=== PATIENT | female | born 1995 | race African-American/Black ===

== ENCOUNTER 2024-11-10 | Day surgery (SDC) | payer OTHER, SELFPAY ==
[2024-10-30 13:31] VITALS: BMI 26.7
--- OUTSIDE RECORDS SUMMARY | 2024-11-10 00:02 | XMS_ITS | Clinical Summary ---
Author Organization [facility] Address [address] [place] [address] Care Team Providers Care Movie Shot Camera Operator Name Role Phone Kristen Campos PA-C Primary Care Provider [phone] Allergies No known active allergies Medications Ferrous Sulfate (IRON) 28 MG Tab Act mathew ondansetron (ZOFRAN-ODT) 8 MG disintegrating tablet Take 1 tablet (8 mg total) by mouth every 8 (eight) hours as needed for Nausea. 20 tablet Active Active Problems No known active problems Family History Medical History Relation Comments No Known Problems Father Diabetes Mother Borderline Relation Status Comments Father Alive Mother Alive Social History Tobacco Use Types Packs/Day Years Used Date Smoking Tobacco: Never Passive Smoke Exposure: Never Smokeless Tobacco: Never Tobacco Cessation:Counseling Given: Not Answered Alcohol Use Standard Drinks/Week Comments No 0 (1 standard drink = 0.6 oz pur e alcohol) Comments No Sex and Gender Information Value Date Recorded Sex Assigned at Female 05/25/2024 5:37 PM HEALTH POLICY ANALYST Legal Sex Female 4:08 PM CDT Gender Identity Not on file Sexual Orientation Not on file Last Filed Vital Signs Vital Sign Reading Time Taken Comments Blood Pressure 131/73 06/05/2024 10:34 PM HEALTH POLICY ANALYST Pulse 58 06/05/2024 10:34 PM HEALTH POLICY ANALYST Temperature 36.1 C (97 F) 06/05/2024 10:34 PM HEALTH POLICY ANALYST Respiratory Rate 18 06/05/2024 10:34 PM HEALTH POLICY ANALYST Oxygen Saturation 100% 06/05/2024 10:34 PM HEALTH POLICY ANALYST Inhaled Oxygen Concentration - - Weight 70 kg (154 lb 5.2 oz) 06/05/2024 8:10 PM HEALTH POLICY ANALYST Height 167.6 cm (5' 6) 06/05/2024 8:10 PM HEALTH POLICY ANALYST Body Mass Index 24.91 06/05/2024 8:10 PM HEALTH POLICY ANALYST Plan of Treatment Health Maintenance Due Date Last Done Comments Cervical Cancer Screening Pap Smear (Age 30 to 64) Every 3 Years 1994 Annual Physical 1997 Hepatitis C 2012 DTaP, Tdap and Td Vaccines (7 - Td or Tdap) 11/28/2018 11/28/2008, 12/11/1999, 09/08/1995, Additional history exists COVID-19 Vaccine ( season) 2023 02/14/2021, 11/15/2020 Cervical Cancer Screening Pap with HPV Testing (Age 30 to 64) Every 5 Years 2024 Cervical Cancer Screening with HPV 2024 Hepatitis B Vaccines Completed 1994, 1994, 1994, Additional history exists Meningococcal Vaccine Aged Out 06/19/2014 , 11/28/2008, 11/28/2008 No longer eligible based on patient's age to complete this topic HPV Vaccines Aged Out No longer eligi ble based on patient's age to complete this topic Meningococcal B Vaccine Aged Out No l onger eligible based on patient's age to complete this topic Pneumococcal Vaccine: Pediatrics (0 to 5 Years) and At-Risk Patients (6 to 49 Years) Aged Out No longer eligible based on patient's age to complete this topic RSV Immunizations Under 20 Months Aged Out No longer eligible based on patient's age to complete this topic Insurance [facility] Care Teams Movie Shot Camera Operator Relationship Specialty Start Date End Date Kristen Campos PA-C [facility] [place] [address] PCP - General NURSE PRACTITIONER 10/11/23
--- OUTSIDE RECORDS SUMMARY | 2024-11-10 00:02 | XMS_ITS | Clinical Summary ---
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 Gender Identity Not on file Sexual Orientation Not on file Plan of Treatment Health Maintenance Due Date Last Done Comments Hepatitis C Virus (HCV) Screening 1994 Pap Smear 2015 Influenza Immunization (#1) 2023 02/06/2021, 1 SARS-COV-2 Immunization ( season) 2023 02/14/2021, 11/15/2020 Respiratory Syncytial Virus (RSV) Immunization (Adult) (1 - 1-dose 75+ series) 2069 Hepatitis B Immunization Completed 995, 1994, 1994 DTaP/Tdap/Td Immunization Discontinued 2008, 12/11/1999, 09/08/1995, Additional history exists TdaP Immunization Completed 11/28/2008 Meningococcal Immunization (ACWY) Aged Out 06/19/2014, 11/28/2008 No longer eligibl e based on patient's age to complete this topic Pneumococcal Immunization Combined Aged Out No longer eligible based on patient's age to complete this topic Rotavirus Immunization Aged Out No lo nger eligible based on patient's age to complete this topic
--- OUTSIDE RECORDS SUMMARY | 2024-11-10 00:02 | XMS_ITS | Clinical Summary ---
Author Organization [facility] Address [address] [place] [address] Care Team Providers Care Feather Separator Name Role Phone Unavailable Primary Care Provider Unavailabl e Source Comments [facility],non-owned Affiliates and Associated Physician Practices is amultiple site organization consisting of ambulatory clinics and hospital sitesin [place], [place], [place] and [place]. This disclosure is being madepursuant to the Care Everywhere program and may not contain all information available regarding this patient. 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 Gender Identity Not on file Sexual Orientation Not on file Plan of Treatment Health Maintenance Due Date Last Done Comments HIV SCREENING 2009 HEPATITIS C SCREENING 06/02/2012 DTAP/TDAP/TD VACCINES (1 - Tdap) 2013 HEPATITIS B VACCINE (1 of 3 - 19+ 3-dose series) 2013 HPV VACCINE (1 - 3-dose SCDM series) 2021 COVID-19 VACCINE ( - 2023-2 5 season) 2023 DEPRESSION SCREENING 04/26/2024 INFLUENZA VACCINE (#1) 2024 ZOSTER VACCINE (1 of 2) 2044 HIB VACCINE Aged Out No longer eligi ble based on patient's age to complete this topic MENINGOCOCCAL (Group B) VACC INE SHARED DECISION-MAKING Aged Out No longer eligibl e based on patient's age to complete this topic MENINGOCOCCAL GROUPS A/C/Y/W VACCINE Aged Out No longer eligible b ased on patient's age to complete this topic PNEUMOCOCCAL VACCINE Aged Out No long er eligible based on patient's age to complete this topic
--- OUTSIDE RECORDS SUMMARY | 2024-11-10 00:02 | XMS_ITS | Data Portability ---
Author Organization [facility] Precious Teran Address [address] [facility] [place] [address] Care Team Providers Care Emergency Preparedness Coordinator Name Role Phone TANYATHEA Primary Care Provider Assessment No assessment recorded. Plan of Treatment Reminders Order Date Submit Date Provider Last Modified By Organization Details Last Modified Time Details Appointments None recorded. Lab YASIR (antinuclea r antibodies) screen, serum 2024 025 [facility], [address] [place], [place] [address] [address], [address], [place], [address], 12:11:40 ESR (erythrocyt e sedimentati on rate), blood 2024 025 [facility], [address] [place], [place] [address]Marco Vasco [address], [address], [place], [address], 12:11:44 C reactive protein, QN, serum or plasma 2024 025 [facility], [address], [address], [place], [address], 5 12:11:45 iron + total iron-bindin g capacity (TIBC), serum 2024 025 [facility], [address] [place], [place] [address]Marco Vasco [address], [address], [place], [address], 5 12:11:41 ferritin, serum or plasma 2024 025 [facility], [address], [address], [place], [address], 5 12:11:42 CBC w/ auto diff 2024 025 [facility], [address], [address], [place], [address], 5 12:11:43 iron + total iron-bindin g capacity (TIBC), serum 2024 025 [facility], [address], [address], [place], [address], 5 12:14:51 ferritin, serum or plasma 2024 025 [facility], [address], [address], [place], [address], 5 12:14:52 CBC w/ auto diff 2024 025 [facility], [address], [address], [place], [address], 5 12:14:53 urinalysis, dipstick 2023 024 [email or web address] In-Office Order, Internal Use Only DO Not Attach Compendium DO Not Attach Compendium, Do Not Delete/merge, [id number] 4 17:23:09 culture, urine 2023 024 [facility], [address], [address], [place], [address], 4 00:29:29 lipid panel, serum 2023 024 [facility], [address], [address], [place], [address], 4 00:29:27 CBC w/ auto diff 2023 024 [facility], [address], [address], [place], [address], 4 00:29:29 vitamin D, 25-hydroxy, total, serum 2023 024 [facility], [address], [address], [place], [address], 4 00:29:30 TSH + free T4, serum 2023 024 [facility], [address], [address], [place], [address], 4 00:29:27 CMP, serum or plasma 2023 024 [facility], [address], [address], [place], [address], 4 00:29:28 iron + total iron-bindin g capacity (TIBC), serum 2023 024 [facility], [address], [address], [place], [address], 4 00:29:28 urinalysis, dipstick 2023 024 [email or web address] In-Office Order, Internal Use Only DO Not Attach Compendium DO Not Attach Compendium, Do Not Delete/merge, [id number] 4 12:35:01 Referral gastroenter ologist referral 2024 025 [email or web address] Skinny Ye MD, [address] [facility] [address], [place], [address], 5 08:51:53 Procedures None recorded. Surgeries None recorded. Imaging None recorded. Medication Orders sertraline 50 mg tablet 2024 025 [facility], [address], [place], [id number], 5 11:01:22 omeprazole 20 mg capsule,del ayed release 2024 025 [facility] #41975, [address], [place], [id number], 5 11:03:20 sertraline 50 mg tablet 2024 025 [facility] #37019, [address], [place], [id number], 5 11:41:08 sertraline 50 mg tablet [email or web address] [facility]23536, [address], [place], [id number], 4 20:14:44 Patient TargetsNo targets recorded. Patient Instructions Encounter Date Encounter Id Patient Instructions Last Modified By Organization Details Last Modified Time 05/21/2023 [id number] A healthy lifestyle: care instructions [email or web address] Not available 05/21/2023 12:35:00 We are treating you for an urinary tract infection. 1. Hydrate and drink plenty of water 2. Take all of your antibiotics even if you are feeling better. 3. If you get a fever, back pain or start feeling really sick, go to the ER as you might have a kidney infection. Do NOT douche as it disturbs the natural balance of bacteria in the vagina and can cause infection. Avoid scented soaps or lotions. Use a basic unscented soap for only the outer skin around your vagina. Wear cotton underwear, avoid thongs, avoid spandex, leggings and wear panty liners daily. You can try probiotics. Use a condom with EVERY sexual encounter to minimize your risk for sexually transmitted infection and unplanned . 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 Referring Physician: Thea Campos, Conductor/Engineer, Encounter Date: 10/02/2024 Results Created Date Observation Date Name Description Value Unit Range Abnormal Flag Note LastModifiedBy Organization Detail LastModifiedTime 05/21/1905/21/2023 urina lysis , dipst ick Leukocytes Small Not Available In-Offi ce Order Internal Use Only DO Not Attach Compendium DO Not Attach Compendium, Do Not Delete/merge, [id number] 05/21/2023 11:06:21 05/21/19 24 05/21/2023 urina lysis , dipst ick Nitrite negati ve Not Available In-Office Order Internal Use Only DO Not Attach Compendium DO Not Attach Compendium, Do Not Delete/merge, [id number] 05/21/2023 11:06:21 05/21/1905/21/2023 urina lysis , dipst ick Urobilinogen 1 Not Available In-Of fice Order Internal Use Only DO Not Attach Compendium DO Not Attach Compendium, Do Not Delete/merge, [id number] 05/21/2023 11:06:21 05/21/19 24 05/21/2023 urina lysis , dipst ick Protein 100 Not Available In-Office Order Internal Use Only DO Not Attach Compendium DO Not Attach Compendium, Do Not Delete/merge, [id number] 05/21/2023 11:06:21 05/21/19 24 05/21/2023 urina lysis , dipst ick pH 6.5 Not Available In-Office Order Internal Use Only DO Not Attach Compendium DO Not Attach Compendium, Do Not Delete/merge, [id number] 05/21/2023 11:06:21 05/21/1905/21/2023 urina lysis , dipst ick Blood Large Not Available In-Office Order Internal Use Only DO Not Attach Compendium DO Not Attach Compendium, Do Not Delete/merge, [facility] 05/21/2023 11:06:21 05/21/19 24 05/21/2023 urina lysis , dipst ick Specific [place] 1.030 Not Available In-Off ice Order Internal Use Only DO Not Attach Compendium DO Not Attach Compendium, Do Not Delete/merge, [id number] 05/21/2023 11:06:21 05/21/19 24 05/21/2023 urina lysis , dipst ick Ketone Negati ve Not Available In-Office Order Internal Use Only DO Not Attach Compendium DO Not Attach Compendium, Do Not Delete/merge, [facility] 05/21/2023 11:06:21 05/21/19 24 05/21/2023 urina lysis , dipst ick Bilirubin Small Not Available In-Offic e Order Internal Use Only DO Not Attach Compendium DO Not Attach Compendium, Do Not Delete/merge, [facility] 05/21/2023 11:06:21 05/21/1905/21/2023 urina lysis , dipst ick Glucose Negati ve Not Available In-Office Order Internal Use Only DO Not Attach Compendium DO Not Attach Compendium, Do Not Delete/merge, [facility] 05/21/2023 11:06:21 05/21/1905/21/2023 urina lysis , dipst ick Appearance Slight ly Cloudy Not Available In-Office Order Internal Use Only DO Not Attach Compendium DO Not Attach Compendium, Do Not Delete/merge, [id number] 05/21/2023 11:06:21 05/21/19 24 05/21/2023 urina lysis , dipst ick Color Yellow Not Available In-Office Order Internal Use Only DO Not Attach Compendium DO Not Attach Compendium, Do Not Delete/merge, [facility] 05/21/2023 11:06:21 06/21/19 24 06/23/2023 SPECI MEN STATU S REPOR T specimen status report TNP Test not perfo rmed. Test cance lled by [facility] after order was submi tted to [facility]. TEST: 26802 6 TSH+F ree T4 92480 9 CBC With Diffe renti al/Pl [place]ele t 89502 0 Comp. Metab olic Panel (14) 70506 6 Lipid Panel 39296 1 Iron and TIBC 70292 0 Vitam in D, 25-Hy droxy Not Available [facility] ([facility]) [address] [place], [address], 06/25/2023 00:29:26 06/21/19 24 06/23/2023 TSH+F REE T4 TSH - uIU/m L Test not perfo rmed. Test cance lled by [facility] gu[facility]erm[facility] after order was submi tted to [facility]. Not Available [facility] ([facility]) [address] [place], [address], 06/25/2023 00:29:27 06/21/19 24 06/23/2023 TSH+F REE T4 T4,free(dire ct) - Test not perfo rmed Not Available [facility] ([facility]) [address] [place], [address], 06/25/2023 00:29:27 06/21/19 24 06/23/2023 LIPID PANEL cholesterol, total - mg/dL Test not perfo rmed. Test cance lled by [facility] provi guillermina after order was submi tted to [facility]. Not Available [facility] ([facility]) [address] [place], [address], 06/25/2023 00:29:27 06/21/19 24 06/23/2023 LIPID PANEL triglyceride s - Test not perfo rmed Not Available [facility] ([facility]) [address] [place], [address], 06/25/2023 00:29:27 06/21/19 24 06/23/2023 LIPID PANEL HDL cholesterol - Test not perfo rmed Not Available [facility] ([facility]) [address] [facility] [place], [address], 06/25/2023 00:29:27 06/21/19 24 06/23/2023 LIPID PANEL VLDL cholesterol vivienne TNP mg/dL Unabl e to calcu late resul t since non-n umeri c resul t obtai rick for compo nent test. Not Available [facility] ([facility]) [address] [facility], [place], [address], 06/25/2023 00:29:27 06/21/19 24 06/23/2023 COMP. METAB OLIC PANEL (14) glucose - mg/dL Test not perfo rmed. Test cance lled by [facility] after order was submi tted to [facility]. Not Available [facility] ([facility]) [address] [facility], [place], [address], 06/25/2023 00:29:28 06/21/19 24 06/23/2023 COMP. METAB OLIC PANEL (14) BUN - Test not perfo rmed Not Available [facility] ([facility]) [address] [facility] [place], [address], 06/25/2023 00:29:28 06/21/19 24 06/23/2023 COMP. METAB OLIC PANEL (14) creatinine - Test not perfo rmed Not Available [facility] ([facility]) [address] [facility] [place], [address], 06/25/2023 00:29:28 06/21/19 24 06/23/2023 COMP. METAB OLIC PANEL (14) sodium - Test not perfo rmed Not Available [facility] ([facility]) [address] [facility] [place], [address], 06/25/2023 00:29:28 06/21/19 24 06/23/2023 COMP. METAB OLIC PANEL (14) potassium - Test not perfo rmed Not Available [facility] ([facility]) [address] [facility], [place], [address], 06/25/2023 00:29:28 06/21/19 24 06/23/2023 COMP. METAB OLIC PANEL (14) chloride - Test not perfo rmed Not Available [facility] ([facility]) [address] [facility], [place], [address], 06/25/2023 00:29:28 06/21/19 24 06/23/2023 COMP. METAB OLIC PANEL (14) carbon dioxide, total - Test not perfo rmed Not Available [facility] ([facility]) [address] [facility], [place], [address], 06/25/2023 00:29:28 06/21/19 24 06/23/2023 COMP. METAB OLIC PANEL (14) calcium - Test not perfo rmed Not Available [facility] ([facility]) [address] [facility] [place], [address], 06/25/2023 00:29:28 06/21/19 24 06/23/2023 COMP. METAB OLIC PANEL (14) protein, total - Test not perfo rmed Not Available [facility] ([facility]) [address] [facility], [place], [address], 06/25/2023 00:29:28 06/21/19 24 06/23/2023 COMP. METAB OLIC PANEL (14) albumin - Test not perfo rmed Not Available [facility] ([facility]) [address] [facility] [place], [address], 06/25/2023 00:29:28 06/21/19 24 06/23/2023 COMP. METAB OLIC PANEL (14) bilirubin, total - Test not perfo rmed Not Available [facility] ([facility]) [address] [facility], [place], [address], 06/25/2023 00:29:28 06/21/19 24 06/23/2023 COMP. METAB OLIC PANEL (14) alkaline phosphatase - Test not perfo rmed Not Available [facility] ([facility]) [address] [facility], [place], [address], 06/25/2023 00:29:28 06/21/19 24 06/23/2023 COMP. METAB OLIC PANEL (14) AST (SGOT) - Test not perfo rmed Not Available [facility] ([facility]) [address] [facility], [place], [address], 06/25/2023 00:29:28 06/21/19 24 06/23/2023 COMP. METAB OLIC PANEL (14) ALT (SGPT) - Test not perfo rmed Not Available [facility] ([facility]) [address] [facility], [place], [address], 06/25/2023 00:29:28 06/21/19 24 06/23/2023 IRON AND TIBC UIBC - ug/dL Test not perfo rmed. Test cance lled by [facility] after order was submi tted to [facility]. Not Available [facility] ([facility]) [address] [facility], [place], [address], 06/25/2023 00:29:28 06/21/19 24 06/23/2023 IRON AND TIBC iron - Test not perfo rmed Not Available [facility] ([facility]) [address] [place], [address], 06/25/2023 00:29:28 06/21/19 24 06/23/2023 CBC WITH DIFFE RENTI AL/PL ATELE T WBC - x10e3 /uL Test not perfo rmed. Test cance lled by [facility] after order was submi tted to [facility]. Not Available [facility] ([facility]) [address] [facility], [place], [address], 06/25/2023 00:29:29 06/21/19 24 06/23/2023 CBC WITH DIFFE RENTI AL/PL ATELE T RBC - Test not perfo rmed Not Available [facility] ([facility]) [address] [facility], [place], [address], 06/25/2023 00:29:29 06/21/19 24 06/23/2023 CBC WITH DIFFE RENTI AL/PL ATELE T hemoglobin - Test not perfo rmed Not Available [facility] ([facility]) [address] [facility], [place], [address], 06/25/2023 00:29:29 06/21/19 24 06/23/2023 CBC WITH DIFFE RENTI AL/PL ATELE T hematocrit - Test not perfo rmed Not Available [facility] ([facility]) [address] [facility], [place], [address], 06/25/2023 00:29:29 06/21/19 24 06/23/2023 CBC WITH DIFFE RENTI AL/PL ATELE T platelets - Test not perfo rmed Not Available [facility] ([facility]) [address] [place], [address], 06/25/2023 00:29:29 06/21/19 24 06/23/2023 CBC WITH DIFFE RENTI AL/PL ATELE T neutrophils - Test not perfo rmed Not Available [facility] ([facility]) [address] [place], [address], 06/25/2023 00:29:29 06/21/19 24 06/23/2023 CBC WITH DIFFE RENTI AL/PL ATELE T lymphs - Test not perfo rmed Not Available [facility] ([facility]) [address] [place], [address], 06/25/2023 00:29:29 06/21/19 24 06/23/2023 CBC WITH DIFFE RENTI AL/PL ATELE T monocytes - Test not perfo rmed Not Available [facility] ([facility]) [address] [facility], [place], [address], 06/25/2023 00:29:29 06/21/19 24 06/23/2023 CBC WITH DIFFE RENTI AL/PL ATELE T eos - Test not perfo rmed Not Available [facility] ([facility]) [address] [facility], [place], [address], 06/25/2023 00:29:29 06/21/19 24 06/23/2023 CBC WITH DIFFE RENTI AL/PL ATELE T lymphs (absolute) - Test not perfo rmed Not Available [facility] ([facility]) [address] [facility], [place], [address], 06/25/2023 00:29:29 06/21/19 24 06/23/2023 CBC WITH DIFFE RENTI AL/PL ATELE T eos (absolute) - Test not perfo rmed Not Available [facility] ([facility]) [address] [facility], [place], [address], 06/25/2023 00:29:29 06/21/19 24 06/23/2023 CBC WITH DIFFE RENTI AL/PL ATELE T baso (absolute) - Test not perfo rmed Not Available [facility] ([facility]) [address] [facility], [place], [address], 06/25/2023 00:29:29 06/21/19 24 06/25/2023 URINE CULTU RE, ROUTI NE urine culture, routine Final report Not Available [facility] ([facility]) [address] [place], [address], 06/25/2023 00:29:29 06/21/19 24 06/25/2023 URINE CULTU RE, ROUTI NE result 1 No growth Not Available [facility] ([facility]) [address] [facility], [place], [address], 06/25/2023 00:29:29 06/21/19 24 06/23/2023 VITAM IN D, 25-HY DROXY vitamin D, 25-hydroxy - NG/mL Test not perfo rmed. Test cance lled by [facility] after order was submi tted to [facility]. Vitam in D defic iency has been defin ed by the Insti tute of Medic ine and an Endoc rine Socie ty pract ice guide line as a level of serum 25-OH vitam in D less than 20 ng/mL (1,2) . The Endoc rine Socie ty went on to [facility] er defin e vitam in D insuf ficie ncy as a level betwe en 21 and 29 ng/mL (2). 1. IOM (Inst itute of Medic ine). 2009. Dieta ry refer ence intak es for calci um and D. Anthony king [place]: The [facility] . 2. Camilla neves MF, Corinna ovalles [place], Christina off-F errar i [employer], et al. Evalu ation , treat ment, and preve ntion of vitam in D defic iency : an Endoc rine Socie ty clini vivienne pract ice guide line. JCEM. 2010; 96(7) :1911 -30. Not Available [facility] ([facility]) [address] [facility], [place], [address], 06/25/2023 00:29:30 06/21/19 24 06/21/2023 urina lysis , dipst ick Leukocytes Large Not Available In-Offi ce Order Internal Use Only DO Not Attach Compendium DO Not Attach Compendium, Do Not Delete/merge, [id number] 06/21/2023 17:07:06 06/21/19 24 06/21/2023 urina lysis , dipst ick Nitrite negati ve Not Available In-Office Order Internal Use Only DO Not Attach Compendium DO Not Attach Compendium, Do Not Delete/merge, [facility] 06/21/2023 17:07:06 06/21/19 24 06/21/2023 urina lysis , dipst ick Urobilinogen 1 Not Available In-Of fice Order Internal Use Only DO Not Attach Compendium DO Not Attach Compendium, Do Not Delete/merge, [facility] 06/21/2023 17:07:06 06/21/19 24 06/21/2023 urina lysis , dipst ick Protein Negati ve Not Available In-Office Order Internal Use Only DO Not Attach Compendium DO Not Attach Compendium, Do Not Delete/merge, [id number] 06/21/2023 17:07:06 06/21/19 24 06/21/2023 urina lysis , dipst ick pH 7.0 Not Available In-Office Order Internal Use Only DO Not Attach Compendium DO Not Attach Compendium, Do Not Delete/merge, [facility] 06/21/2023 17:07:06 06/21/19 24 06/21/2023 urina lysis , dipst ick Blood Large Not Available In-Office Order Internal Use Only DO Not Attach Compendium DO Not Attach Compendium, Do Not Delete/merge, [facility] 06/21/2023 17:07:06 06/21/19 24 06/21/2023 urina lysis , dipst ick Specific [place] 1.020 Not Available In-Off ice Order Internal Use Only DO Not Attach Compendium DO Not Attach Compendium, Do Not Delete/merge, [facility] 06/21/2023 17:07:06 06/21/19 24 06/21/2023 urina lysis , dipst ick Ketone Negati ve Not Available In-Office Order Internal Use Only DO Not Attach Compendium DO Not Attach Compendium, Do Not Delete/merge, [facility] 06/21/2023 17:07:06 06/21/19 24 06/21/2023 urina lysis , dipst ick Bilirubin Negati ve Not Available In-Office Order Internal Use Only DO Not Attach Compendium DO Not Attach Compendium, Do Not Delete/merge, [facility] 06/21/2023 17:07:06 06/21/19 24 06/21/2023 urina lysis , dipst ick Glucose Negati ve Not Available In-Office Order Internal Use Only DO Not Attach Compendium DO Not Attach Compendium, Do Not Delete/merge, [id number] 06/21/2023 17:07:06 06/21/19 24 06/21/2023 urina lysis , dipst ick Appearance Cloudy Not Available In-Offi ce Order Internal Use Only DO Not Attach Compendium DO Not Attach Compendium, Do Not Delete/merge, [id number] 06/21/2023 17:07:06 06/21/19 24 06/21/2023 urina lysis , dipst ick Color Pale Yellow Not Available In-Office Order Internal Use Only DO Not Attach Compendium DO Not Attach Compendium, Do Not Delete/merge, [id number] 06/21/2023 17:07:06 03/03/20 24 03/07/2024 Chlam ydia trach omati s+Nei sseri a gonor rhoea e DNA [Pres ence] in Speci men by RONNIE with probe detec tion specimen site narrative CERVIX Not Available Not Available 11:25:08 03/03/20 24 03/07/2024 Chlam ydia trach omati s+Nei sseri a gonor rhoea e DNA [Pres ence] in Speci men by RONNIE with probe detec tion chlamydia trachomatis rrna [presence] in specimen by probe NEGATI VE text: negati ve PERFO RMED BY NUCLE IC ACID AMPLI FICAT ION Not Available Not Available 10/02/2024 11:25:08 03/03/20 24 03/07/2024 Chlam ydia trach omati s+Nei sseri a gonor rhoea e DNA [Pres ence] in Speci men by RONNIE with probe detec tion neisseria gonorrhoeae rrna [presence] in specimen by probe NEGATI VE text: negati ve PERFO RMED BY NUCLE IC ACID AMPLI FICAT ION Not Available Not Available 10/02/2024 11:25:08 03/03/20 24 03/07/2024 Bacte abby ident ified in Genit al speci men by Aerob e cultu re specimen source identified VAGINA L SPECIM EN Not Available Not Available 11:25:08 03/03/20 24 03/07/2024 Bacte abby ident ified in Genit al speci men by Aerob [employer] cultu re service comment NO SPECIA L REQUES T Not Available Not Available 11:25:08 03/03/20 24 03/07/2024 Bacte abby ident ified in Genit al speci men by Aer[employer] cultu re microscopic observation [identifier] in specimen by gram stain INDETE RMINAT E FOR BACTER IAL VAGINO SIS Not Available Not Available 11:25:08 03/03/20 24 03/07/2024 Bacte abby ident ified in Genit al speci men by Aerob e cultu re microscopic observation [identifier] in specimen by gram stain NO YEAST OR FUNGAL ELEMEN TS SEEN Not Available Not Available 11:25:08 03/03/20 24 03/07/2024 Bacte abby ident ified in Genit al speci men by Aerob e cultu re bacteria identified in specimen by culture HEAVY GROWTH OF GARDNE RELLA VAGINA LIS STANDA RDIZED SUSCEP TIBILI TIES HAVE NOT BEEN ESTABL ISHED FOR THIS ORGANI SM. abnormal Not Available Not Available 11:25:08 03/03/20 24 03/07/2024 Bacte abby ident ified in Genit al speci men by Aerob e cultu re bacteria identified in specimen by culture MODERA TE GROWTH OF NORMAL VINCE PRESEN T Not Available Not Available 11:25:08 03/03/20 24 03/07/2024 Bacte abby ident ified in Genit al speci men by Aerob e cultu re interpretati on and review of laboratory results Abnorm al Not Available Not Available 11:25:08 03/03/20 24 03/06/2024 Bacte abby ident ified in Urine by Cultu re specimen source identified URINE CLEAN CATCH Not Available Not Available 11:25:08 03/03/20 24 03/06/2024 Bacte abby ident ified in Urine by Cultu re service comment NO SPECIA L REQUES T Not Available Not Available 11:25:08 03/03/20 24 03/06/2024 Bacte abby ident ified in Urine by Cultu re bacteria identified in specimen by culture >100,0 00 COL/ML ENTERO COCCUS SPECIE S abnormal Not Available Not Available 11:25:08 03/03/20 24 03/06/2024 Bacte abby ident ified in Urine by Cultu re interpretati on and review of laboratory results Abnorm al Not Available Not Available 11:25:08 03/03/20 24 03/03/2024 Urina lysis macro (dips tick) panel - Urine collection method - specimen URINE CLEAN CATCH Not Available Not Available 11:25:08 03/03/20 24 03/03/2024 Urina lysis macro (dips tick) panel - Urine color of urine OTHER Not Available Not Available 12/2024 11:25:08 03/03/20 24 03/03/2024 Urina lysis macro (dips tick) panel - Urine clarity of urine CLOUDY Not Available Not Available 12/2024 11:25:08 03/03/20 24 03/03/2024 Urina lysis macro (dips tick) panel - Urine specific gravity of urine >1.030 low: 1.001h igh: 1.03 high Not Available Not Available 10/02/2024 11:25:08 03/03/20 24 03/03/2024 Urina lysis macro (dips tick) panel - Urine pH of urine 6 low: 5high: 9 Not Available Not Available 10/02/2024 11:25:08 03/03/20 24 03/03/2024 Urina lysis macro (dips tick) panel - Urine leukocytes [#/volume] in urine by test strip SMALL text: negati ve abnormal Not Available Not Available 10/02/2024 11:25:08 03/03/20 24 03/03/2024 Urina lysis macro (dips tick) panel - Urine nitrite [presence] in urine NEGATI VE text: negati ve Not Available Not Available 10/02/2024 11:25:08 03/03/20 24 03/03/2024 Urina lysis macro (dips tick) panel - Urine protein [mass/volume ] in urine by test strip 30 text: <30 mg/dL high Not Available Not Available 10/02/2024 11:25:08 03/03/20 24 03/03/2024 Urina lysis macro (dips tick) panel - Urine glucose [mass/volume ] in urine NEGATI VE text: negati ve mg/dL Not Available Not Available 10/02/2024 11:25:08 03/03/20 24 03/03/2024 Urina lysis macro (dips tick) panel - Urine ketones [mass/volume ] in urine by test strip 15 text: negati ve mg/dL abnormal Not Available Not Available 10/02/2024 11:25:08 03/03/20 24 03/03/2024 Urina lysis macro (dips tick) panel - Urine urobilinogen [units/volum e] in urine by test strip 2 text: negati ve mg/dL abnormal Not Available Not Available 10/02/2024 11:25:08 03/03/20 24 03/03/2024 Urina lysis macro (dips tick) panel - Urine bilirubin.to chandler [mass/volume ] in urine NEGATI VE text: negati ve mg/dL Not Available Not Available 10/02/2024 11:25:08 03/03/20 24 03/03/2024 Urina lysis macro (dips tick) panel - Urine erythrocytes [#/volume] in urine by automated test strip LARGE text: negati ve abnormal Not Available Not Available 10/02/2024 11:25:08 03/03/20 24 03/03/2024 Urina lysis macro (dips tick) panel - Urine interpretati on and review of laboratory results Abnorm al Not Available Not Available 11:25:08 05/25/19 25 05/25/2024 Influ marely virus A+B Ag [Pres ence] in Speci men specimen source identified PALMA BRODERICK AL SWAB SPECI MEN TYPE RADHA BLANCA GEAL SWAB 05/25 6:41 PM [facility] Not Available Not Available 2024 11:46:23 05/25/19 25 05/25/2024 Influ marely virus A+B Ag [Pres ence] in Speci men influenza virus A Ag [presence] in specimen NEGATI VE text: negati ve INFLU MARELY A NEGAT KASIA NEGAT KASIA 05/25 6:43 PM CUPROUS CHLORIDE OPERATOR [facility] Not Available Not Available 2024 11:46:23 05/25/19 25 05/25/2024 Influ marely virus A+B Ag [Pres ence] in Speci men haemophilus influenzae B Ag [presence] in specimen NEGATI VE text: negati ve INFLU MARELY B NEGAT KASIA NEGAT KASIA 05/25 6:43 PM [facility]LORIDE OPER[facility] Not Available Not Available 2024 11:46:23 05/25/19 25 05/25/2024 Strep tococ cus pyoge susan Ag [Pres ence] in Throa t specimen source identified RESULT S ENTERE D IN ERROR. ZA SPECI MEN TYPE RESUL TS ENTER ED IN ERROR . ZAL 05/25 6:47 PM CUPROUS CHLORIDE OPERATOR [facility] Not Available Not Available 2024 11:46:23 05/25/19 25 05/25/2024 Strep tococ cus pyoge susan Ag [Pres ence] in Throa t streptococcu s pyogenes Ag [presence] in throat RESULT S ENTERE D IN ERROR. ZA text: negati ve RAPID STREP TEST RESUL TS ENTER ED IN ERROR . NASRIN NEGAT KASIA 05/25 6:47 PM CUPROUS CHLORIDE OPERATOR [facility] Not Available Not Available 2024 11:46:23 05/30/19 25 05/30/2024 Basic metab olic 2000 panel - Serum or Plasm a glucose [mass/volume ] in serum or plasma 88 text: 70 - 99 mg/dL GLUCO SE 88 70 - 99 MG/DL 05/30 6:38 PM CUPROUS CHLORIDE OPERATOR [facility] Not Available Not Available 2024 11:46:25 05/30/19 25 05/30/2024 Basic metab olic 2000 panel - Serum or Plasm a urea nitrogen [mass/volume ] in serum or plasma 13 text: 7 - 18 mg/dL BUN 13 7 - 18 MG/DL 05/30 6:38 PM [facility] Not Available Not Available 2024 11:46:25 05/30/19 25 05/30/2024 Basic metab olic 1999 panel - Serum or Plasm a creatinine [mass/volume ] in serum or plasma 0.79 text: 0.55 - 1.02 mg/dL CREAT ININE S/P/B 0.79 0.55 - 1.02 MG/DL 05/30 6:38 PM [facility] Not Available Not Available 2024 11:46:25 05/30/19 25 05/30/2024 Basic metab olic 1999 panel - Serum or Plasm a sodium [moles/volum e] in serum or plasma 138 text: 136 - 145 mmol/L SODIU M S/P/B 138 136 - 145 MMOL/ L 05/30 6:38 PM [facility] Not Available Not Available 2024 11:46:25 05/30/19 25 05/30/2024 Basic metab olic 1999 panel - Serum or Plasm a potassium [moles/volum e] in serum or plasma 3.6 text: 3.5 - 5.1 mmol/L POTAS SIUM S/P/B 3.6 3.5 - 5.1 MMOL/ L 05/30 6:38 PM [facility] Not Available Not Available 2024 11:46:25 05/30/19 25 05/30/2024 Basic metab olic 1999 panel - Serum or Plasm a chloride [moles/volum e] in serum or plasma 106 text: 97 - 115 mmol/L CHLOR ROXY S/P/B 106 97 - 115 MMOL/ L 05/30 6:38 PM [facility] Not Available Not Available 2024 11:46:25 05/30/19 25 05/30/2024 Basic metab olic 1999 panel - Serum or Plasm a carbon dioxide, total [moles/volum e] in serum or plasma 25.6 text: 21 - 32 mmol/L CO2 25.6 21 - 32 MMOL/ L 05/30 6:38 PM [facility] Not Available Not Available 2024 11:46:25 05/30/19 25 05/30/2024 Basic metab olic 1999 panel - Serum or Plasm a calcium [mass/volume ] in serum or plasma 9.3 text: 8.5 - 10.1 mg/dL CALCI UM S/P/B 9.3 8.5 - 10.1 MG/DL 05/30 6:38 PM [facility] Not Available Not Available 2024 11:46:25 05/30/19 25 05/30/2024 Basic metab olic 1999 panel - Serum or Plasm a anion gap in serum or plasma 6.4 text: 2 - 10 mmol/L ANION GAP 6.4 2 - 10 MMOL/ L 05/30 6:38 PM [facility] Not Available Not Available 2024 11:46:25 05/30/19 25 05/30/2024 Basic metab olic 2000 panel - Serum or Plasm a urea nitrogen/cre atinine [mass ratio] in serum or plasma 16.5 low: 6high: 26 BUN CREAT ININE RATIO 16.5 6 - 26 05/30 6:38 PM [facility] Not Available Not Available 2024 11:46:25 05/30/19 25 05/30/2024 Basic metab olic 2000 panel - Serum or Plasm a glomerular filtration rate/1.73 sq M.predicted [volume rate/area] in serum, plasma or blood by creatinine-b ased formula (CKD-epi 2020) text: >90 mL/min /1.73 M2 GFR ESTIM ATE >90 >90 ML/[place] N/1.7 3 M2 05/30 6:38 PM CUPROUS CHLORIDE OPERATOR [facility] Not Available Not Available 2024 11:46:25 05/30/19 25 05/30/2024 Fibri n D-dim er FEU [Mass /volu me] in Plate let poor plasm a fibrin D-dimer feu [mass/volume ] in platelet poor plasma 269 NG{fe u}/mL low: 0NG{fe u}/mLh igh: 500NG{ feu}/m L D-DIM ER 269 0 - 500 ng{FE U}/mL 05/30 6:43 PM CUPROUS CHLORIDE OPERATOR [facility] Not Available Not Available 2024 11:46:25 06/01/19 25 06/02/2024 IRON AND TIBC iron bind.cap.(TI BC) 309 ug/dL 250-45 0 Not Available [facility] ([facility]) [address] [place], [address], 06/02/2024 12:14:51 06/01/19 25 06/02/2024 IRON AND TIBC UIBC 275 ug/dL 131-42 5 Not Available [facility] ([facility]) [address] [place], [address], 06/02/2024 12:14:51 06/01/19 25 06/02/2024 IRON AND TIBC iron 34 ug/dL 27-159 Not Available [facility] ([facility]) [address] [place], [address], 06/02/2024 12:14:51 06/01/19 25 06/02/2024 IRON AND TIBC iron saturation 11 % 15-55 below low normal Not Available [facility] ([facility]) [address] [place], [address], 06/02/2024 12:14:51 06/01/19 25 06/02/2024 ANNIE TIN ferritin 27 NG/mL 15-150 Not Available [facility] ([facility]) [address] [place], [address], 06/02/2024 12:14:52 06/01/19 25 06/02/2024 CBC WITH DIFFE RENTI AL/PL ATELE T WBC 4.9 x10e3 /uL 3.4-10 .8 Not Available [facility] ([facility]) [address] [place], [address], 06/02/2024 12:14:53 06/01/19 25 06/02/2024 CBC WITH DIFFE RENTI AL/PL ATELE T RBC 3.66 x10e6 /uL 3.77-5 .28 below low normal Not Available [facility] ([facility]) [address] [place], [address], 06/02/2024 12:14:53 06/01/19 25 06/02/2024 CBC WITH DIFFE RENTI AL/PL ATELE T hemoglobin 10.7 g/dL 11.1-1 5.9 below low normal Not Available [facility] ([facility]) [address] [place], [address], 06/02/2024 12:14:53 06/01/19 25 06/02/2024 CBC WITH DIFFE RENTI AL/PL ATELE T hematocrit 33.3 % 34.0-4 6.6 below low normal Not Available [facility] ([facility]) [address] [place], [address], 06/02/2024 12:14:53 06/01/19 25 06/02/2024 CBC WITH DIFFE RENTI AL/PL ATELE T MCV 91 fL 79-97 Not Available [facility] ([facility]) [address] [place], [address], 06/02/2024 12:14:53 06/01/19 25 06/02/2024 CBC WITH DIFFE RENTI AL/PL ATELE T MCH 29.2 pg 26.6-3 3.0 Not Available [facility] ([facility]) [address] [place], [address], 06/02/2024 12:14:53 06/01/19 25 06/02/2024 CBC WITH DIFFE RENTI AL/PL ATELE T MCHC 32.1 g/dL 31.5-3 5.7 Not Available [facility] ([facility]) [address] [facility], [place], [address], 06/02/2024 12:14:53 06/01/19 25 06/02/2024 CBC WITH DIFFE RENTI AL/PL ATELE T RDW 12.6 % 11.7-1 5.4 Not Available [facility] ([facility]) [address] [facility], [place], [address], 06/02/2024 12:14:53 06/01/19 25 06/02/2024 CBC WITH DIFFE RENTI AL/PL ATELE T platelets 290 x10e3 /uL 150-45 0 Not Available [facility] ([facility]) [address] [facility], [place], [address], 06/02/2024 12:14:53 06/01/19 25 06/02/2024 CBC WITH DIFFE RENTI AL/PL ATELE T neutrophils 61 % notest ab. Not Available [facility] ([facility]) [address] [facility], [place], [address], 06/02/2024 12:14:53 06/01/19 25 06/02/2024 CBC WITH DIFFE RENTI AL/PL ATELE T lymphs 29 % notest ab. Not Available [facility] ([facility]) [address] [facility], [place], [address], 06/02/2024 12:14:53 06/01/19 25 06/02/2024 CBC WITH DIFFE RENTI AL/PL ATELE T monocytes 6 % notest ab. Not Available [facility] ([facility]) [address] [place], [address], 06/02/2024 12:14:53 06/01/19 25 06/02/2024 CBC WITH DIFFE RENTI AL/PL ATELE T eos 3 % notest ab. Not Available [facility] ([facility]) [address] [facility], [place], [address], 06/02/2024 12:14:53 06/01/19 25 06/02/2024 CBC WITH DIFFE RENTI AL/PL ATELE T basos 1 % notest ab. Not Available [facility] ([facility]) [address] [facility], [place], [address], 06/02/2024 12:14:53 06/01/19 25 06/02/2024 CBC WITH DIFFE RENTI AL/PL ATELE T neutrophils (absolute) 3.1 x10e3 /uL 1.4-7. 0 Not Available [facility] ([facility]) [address] [place], [address], 06/02/2024 12:14:53 06/01/19 25 06/02/2024 CBC WITH DIFFE RENTI AL/PL ATELE T lymphs (absolute) 1.4 x10e3 /uL 0.7-3. 1 Not Available [facility] ([facility]) [address] [facility], [place], [address], 06/02/2024 12:14:53 06/01/19 25 06/02/2024 CBC WITH DIFFE RENTI AL/PL ATELE T monocytes(ab solute) 0.3 x10e3 /uL 0.1-0. 9 Not Available [facility] ([facility]) [address] [place], [address], 06/02/2024 12:14:53 06/01/19 25 06/02/2024 CBC WITH DIFFE RENTI AL/PL ATELE T eos (absolute) 0.1 x10e3 /uL 0.0-0. 4 Not Available [facility] ([facility]) [address] [place], [address], 06/02/2024 12:14:53 06/01/19 25 06/02/2024 CBC WITH DIFFE RENTI AL/PL ATELE T baso (absolute) 0.0 x10e3 /uL 0.0-0. 2 Not Available [facility] ([facility]) [address] [facility], [place], [address], 06/02/2024 12:14:53 06/01/19 25 06/02/2024 CBC WITH DIFFE RENTI AL/PL ATELE T immature granulocytes 0 % notest ab. Not Available [facility] ([facility]) [address] [facility], [place], [address], 06/02/2024 12:14:53 06/01/19 25 06/02/2024 CBC WITH DIFFE RENTI AL/PL ATELE T immature grans (abs) 0.0 x10e3 /uL 0.0-0. 1 Not Available [facility] ([facility]) [address] [facility], [place], [address], 06/02/2024 12:14:53 06/05/19 25 06/05/2024 Lipas e [Enzy matic activ ity/v olume ] in Serum or Plasm a lipase [enzymatic activity/vol ume] in serum or plasma 26 text: 13 - 75 units/ L LIPAS E 26 13 - 75 UNITS /L 06/05 9:41 PM CUPROUS CHLORIDE OPERATOR [facility] Not Available Not Available 06/06/2024 00:12:58 06/05/19 25 06/05/2024 Compr ehens kasia metab olic 1999 panel - Serum or Plasm a glucose [mass/volume ] in serum or plasma 94 text: 70 - 99 mg/dL GLUCO SE 94 70 - 99 MG/DL 06/05 9:41 PM CUPROUS CHLORIDE OPERATOR [facility] Not Available Not Available 06/06/2024 00:12:58 06/05/19 25 06/05/2024 Compr ehens kasia metab olic 2000 panel - Serum or Plasm a urea nitrogen [mass/volume ] in serum or plasma 12 text: 7 - 18 mg/dL BUN 12 7 - 18 MG/DL 06/05 9:41 PM [facility] Not Available Not Available 06/06/2024 00:12:58 06/05/19 25 06/05/2024 Compr ens kasia metab olic 1999 panel - Serum or Plasm a creatinine [mass/volume ] in serum or plasma 0.76 text: 0.55 - 1.02 mg/dL CREAT ININE S/P/B 0.76 0.55 - 1.02 MG/DL 06/05 9:41 PM [facility] Not Available Not Available 06/06/2024 00:12:58 06/05/1906/05/2024 Compr ens kasia metab olic 1999 panel - Serum or Plasm a sodium [moles/volum e] in serum or plasma 137 text: 136 - 145 mmol/L SODIU M S/P/B 137 136 - 145 MMOL/ L 06/05 9:41 PM [facility] Not Available Not Available 06/06/2024 00:12:58 06/05/1906/05/2024 Compr ens kasia metab olic 1999 panel - Serum or Plasm a potassium [moles/volum e] in serum or plasma 3.3 text: 3.5 - 5.1 mmol/L low POTAS SIUM S/P/B 3.3 (L) 3.5 - 5.1 MMOL/ L 06/05 9:41 PM [facility] Not Available Not Available 06/06/2024 00:12:58 06/05/1906/05/2024 Compr ens kasia metab olic 2000 panel - Serum or Plasm a chloride [moles/volum e] in serum or plasma 105 text: 97 - 115 mmol/L CHLOR ROXY S/P/B 105 97 - 115 MMOL/ L 06/05 9:41 PM [facility] Not Available Not Available 06/06/2024 00:12:58 06/05/19 25 06/05/2024 Compr ehens kasia metab olic 1999 panel - Serum or Plasm a carbon dioxide, total [moles/volum e] in serum or plasma 27.5 text: 21 - 32 mmol/L CO2 27.5 21 - 32 MMOL/ L 06/05 9:41 PM [facility] Not Available Not Available 06/06/2024 00:12:58 06/05/19 25 06/05/2024 Compr ehens kasia metab olic 1999 panel - Serum or Plasm a calcium [mass/volume ] in serum or plasma 9.9 text: 8.5 - 10.1 mg/dL CALCI UM S/P/B 9.9 8.5 - 10.1 MG/DL 06/05 9:41 PM [facility] Not Available Not Available 06/06/2024 00:12:58 06/05/1906/05/2024 Compr ehens kasia metab olic 2000 panel - Serum or Plasm a bilirubin.to chandler [mass/volume ] in serum or plasma 0.2 text: 0.2 - 1.2 mg/dL BILIR UBIN TOTAL S/P/B 0.2 0.2 - 1.2 MG/DL 06/05 9:41 PM [facility] Not Available Not Available 06/06/2024 00:12:58 06/05/1906/05/2024 Compr ehens kasia metab olic 2000 panel - Serum or Plasm a protein [mass/volume ] in serum or plasma 7.1 text: 6.4 - 8.2 g/dL TOTAL PROTE IN S/P/B 7.1 6.4 - 8.2 G/DL 06/05 9:41 PM [facility] Not Available Not Available 06/06/2024 00:12:58 06/05/19 25 06/05/2024 Compr ehens kasia metab olic 2000 panel - Serum or Plasm a albumin [mass/volume ] in serum or plasma 3.8 text: 3.4 - 5.0 g/dL ALBUM IN S/P/B 3.8 3.4 - 5.0 G/DL 06/05 9:41 PM [facility] Not Available Not Available 06/06/2024 00:12:58 06/05/19 25 06/05/2024 Compr ehens kasia metab olic 1999 panel - Serum or Plasm a aspartate aminotransfe rase [enzymatic activity/vol ume] in serum or plasma 7 U/L low: 15U/Lh igh: 37U/L low AST 7 (L) 15 - 37 U/L 06/05 9:41 PM [facility] Not Available Not Available 06/06/2024 00:12:58 06/05/1906/05/2024 Compr ehens kasia metab olic 2000 panel - Serum or Plasm a alanine aminotransfe rase [enzymatic activity/vol ume] in serum or plasma 12 U/L low: 14U/Lh igh: 55U/L low ALT 12 (L) 14 - 55 U/L 06/05 9:41 PM [facility] Not Available Not Available 06/06/2024 00:12:58 06/05/1906/05/2024 Compr ehens kasia metab olic 1999 panel - Serum or Plasm a alkaline phosphatase [enzymatic activity/vol ume] in serum or plasma 53 U/L low: 50U/Lh igh: 136U/L ALKAL INE PHOSP HATAS E S/P/B 53 50 - 136 U/L 06/05 9:41 PM [facility] Not Available Not Available 06/06/2024 00:12:58 06/05/1906/05/2024 Compr ehens kasia metab olic 1999 panel - Serum or Plasm a anion gap in serum or plasma 4.5 text: 2 - 10 mmol/L ANION GAP 4.5 2 - 10 MMOL/ L 06/05 9:41 PM [facility] Not Available Not Available 06/06/2024 00:12:58 06/05/1906/05/2024 Compr ehens kasia metab olic 1999 panel - Serum or Plasm a urea nitrogen/cre atinine [mass ratio] in serum or plasma 15.7 low: 6high: 26 BUN CREAT ININE RATIO 15.7 6 - 26 06/05 9:41 PM [facility] Not Available Not Available 06/06/2024 00:12:58 06/05/1906/05/2024 Compr ehens kasia metab olic 1999 panel - Serum or Plasm a albumin/glob ulin [mass ratio] in serum or plasma 1.2 text: 1.0 - 2.0 ratio A/G RATIO 1.2 1.0 - 2.0 RATIO 06/05 9:41 PM [facility] Not Available Not Available 06/06/2024 00:12:58 06/05/1906/05/2024 Compr ehens kasia metab olic 1999 panel - Serum or Plasm a glomerular filtration rate/1.73 sq M.predicted [volume rate/area] in serum, plasma or blood by creatinine-b ased formula (CKD-epi 2020) text: >90 mL/min /1.73 M2 GFR ESTIM ATE >90 >90 ML/[place] N/1.7 3 M2 06/05 9:41 PM [facility] Not Available Not Available 06/06/2024 00:12:58 06/05/1906/05/2024 Compr ehens kasia metab olic 2000 panel - Serum or Plasm a interpretati on and review of laboratory results Abnorm al Not Available Not Available 00:12:58 06/05/1906/05/2024 CBC W Auto Diffe renti al panel - Blood leukocytes [#/volume] in blood by automated count 5.32 text: 4.5 - 11.0 x10'3/ uL WBC 5.32 4.5 - 11.0 x10'3 /uL 06/05 9:05 PM [facility] Not Available Not Available 06/06/2024 00:12:58 06/05/19 25 06/05/2024 CBC W Auto Diffe renti al panel - Blood erythrocytes [#/volume] in blood by automated count 3.49 text: 4.20 - 5.40 x10'6/ uL low RBC 3.49 (L) 4.20 - 5.40 x10'6 /uL 06/05 9:05 PM [facility] Not Available Not Available 06/06/2024 00:12:58 06/05/1906/05/2024 CBC W Auto Diffe renti al panel - Blood hemoglobin [mass/volume ] in blood 10.1 text: 12.0 - 16.0 g/dL low HGB 10.1 (L) 12.0 - 16.0 G/DL 06/05 9:05 PM [facility] Not Available Not Available 06/06/2024 00:12:58 06/05/1906/05/2024 CBC W Auto Diffe renti al panel - Blood hematocrit [volume fraction] of blood 30.8 % low: 38%hig h: 48% low HCT 30.8 (L) 38.0 - 48.0 % 06/05 9:05 PM [facility] Not Available Not Available 06/06/2024 00:12:58 06/05/19 25 06/05/2024 CBC W Auto Diffe renti al panel - Blood MCV [entitic volume] 88.3 text: 81.0 - 99.0 fL MCV 88.3 81.0 - 99.0 FL 06/05 9:05 PM [facility] Not Available Not Available 06/06/2024 00:12:58 06/05/19 25 06/05/2024 CBC W Auto Diffe renti al panel - Blood MCH [entitic mass] 28.9 pg low: 27pghi gh: 31pg MCH 28.9 27.0 - 31.0 PG 06/05 9:05 PM CUPROUS CHLORIDE OPERATOR [facility] Not Available Not Available 06/06/2024 00:12:58 06/05/1906/05/2024 CBC W Auto Diffe renti al panel - Blood MCHC [mass/volume ] 32.8 text: 32.0 - 36.0 g/dL MCHC 32.8 32.0 - 36.0 G/DL 06/05 9:05 PM [facility] Not Available Not Available 06/06/2024 00:12:58 06/05/1906/05/2024 CBC W Auto Diffe renti al panel - Blood erythrocyte distribution width [entitic volume] by automated count 13 % low: 11.5%h igh: 14.5% RDW 13.0 11.5 - 14.5 % 06/05 9:05 PM [facility] Not Available Not Available 06/06/2024 00:12:58 06/05/1906/05/2024 CBC W Auto Diffe renti al panel - Blood platelets [#/volume] in blood 268 text: 130 - 400 x10'3/ uL PLT 268 130 - 400 x10'3 /uL 06/05 9:05 PM [facility] Not Available Not Available 06/06/2024 00:12:58 06/05/19 25 06/05/2024 CBC W Auto Diffe renti al panel - Blood platelet mean volume [entitic volume] in blood 11 text: 9.3 - 12.2 fL MPV 11.0 9.3 - 12.2 FL 06/05 9:05 PM [facility] Not Available Not Available 06/06/2024 00:12:58 06/05/1906/05/2024 CBC W Auto Diffe renti al panel - Blood differential cell count method - blood AUTOMA DORIS DIFFER ENTIAL DIFFE RENTI AL TYPE AUTOM ATED DIFFE RENTI AL 06/05 9:05 PM [facility] Not Available Not Available 06/06/2024 00:12:58 06/05/19 25 06/05/2024 CBC W Auto Diffe renti al panel - Blood neutrophils/ 100 leukocytes in blood by automated count 42.2 % NEUTR OPHIL S % 42.2 % 06/05 9:05 PM [facility] Not Available Not Available 06/06/2024 00:12:58 06/05/19 25 06/05/2024 CBC W Auto Diffe renti al panel - Blood lymphocytes/ 100 leukocytes in blood by automated count 47.2 % LYMPH OCYTE S % 47.2 % 06/05 9:05 PM [facility] Not Available Not Available 06/06/2024 00:12:58 06/05/1906/05/2024 CBC W Auto Diffe renti al panel - Blood monocytes/10 0 leukocytes in blood by automated count 7.3 % MONOC YTES % 7.3 % 06/05 9:05 PM [facility] Not Available Not Available 06/06/2024 00:12:58 06/05/19 25 06/05/2024 CBC W Auto Diffe renti al panel - Blood eosinophils/ 100 leukocytes in blood by automated count 2.3 % EOSIN OPHIL S 2.3 % 06/05 9:05 PM [facility] Not Available Not Available 06/06/2024 00:12:58 06/05/19 25 06/05/2024 CBC W Auto Diffe renti al panel - Blood basophils/10 0 leukocytes in blood by automated count 0.8 % BASOP HILS 0.8 % 06/05 9:05 PM [facility] Not Available Not Available 06/06/2024 00:12:58 06/05/19 25 06/05/2024 CBC W Auto Diffe renti al panel - Blood immature granulocytes /100 leukocytes in blood by automated count 0.2 % IMMAT URE GRANS % 0.2 % 06/05 9:05 PM [facility] Not Available Not Available 06/06/2024 00:12:58 06/05/19 25 06/05/2024 CBC W Auto Diffe renti al panel - Blood neutrophils [#/volume] in blood 2.25 text: 1.80 - 7.70 x10'3/ uL ABS. NEUTR OPHIL S 2.25 1.80 - 7.70 x10'3 /uL 06/05 9:05 PM CUPROUS CHLORIDE OPERATOR [facility] Not Available Not Available 06/06/2024 00:12:58 06/05/19 25 06/05/2024 CBC W Auto Diffe renti al panel - Blood lymphocytes [#/volume] in blood 2.51 text: 1.00 - 4.80 x10'3/ uL ABS. LYMPH OCYTE S 2.51 1.00 - 4.80 x10'3 /uL 06/05 9:05 PM [facility] Not Available Not Available 06/06/2024 00:12:58 06/05/19 25 06/05/2024 CBC W Auto Diffe renti al panel - Blood monocytes [#/volume] in blood 0.39 text: 0.24 - 0.86 x10'3/ uL ABS. MONOC YTES 0.39 0.24 - 0.86 x10'3 /uL 06/05 9:05 PM [employer] [facility] Not Available Not Available 06/06/2024 00:12:58 06/05/19 25 06/05/2024 CBC W Auto Diffe renti al panel - Blood eosinophils [#/volume] in blood 0.12 text: 0.04 - 0.36 x10'3/ uL ABS. EOSIN OPHIL S 0.12 0.04 - 0.36 x10'3 /uL 06/05 9:05 PM [employer] [facility] Not Available Not Available 06/06/2024 00:12:58 06/05/19 25 06/05/2024 CBC W Auto Diffe renti al panel - Blood basophils [#/volume] in blood 0.04 text: 0.01 - 0.08 x10'3/ uL ABS. BASOP HILS 0.04 0.01 - 0.08 x10'3 /uL 06/05 9:05 PM [employer] [facility] Not Available Not Available 06/06/2024 00:12:58 06/05/1906/05/2024 CBC W Auto Diffe renti al panel - Blood immature granulocytes [#/volume] in blood 0.01 text: 0.00 - 0.49 x10'3/ uL ABS. IMMAT URE GRANU LOCYT ES 0.01 0.00 - 0.49 x10'3 /uL 06/05 9:05 PM [employer] [facility] Not Available Not Available 06/06/2024 00:12:58 06/05/1906/05/2024 CBC W Auto Diffe renti al panel - Blood interpretati on and review of laboratory results Abnorm al Not Available Not Available 00:12:58 10/03/1910/03/2024 ANTIN UCLEA R AB MULTI PLEX RFX 9 YASIR direct NEGATI VE negati ve Not Available [facility] ([facility]) [address] [place], [address], 10/03/2024 12:11:40 10/03/19 25 10/03/2024 IRON AND TIBC iron bind.cap.(TI BC) 367 ug/dL 250-45 0 Not Available [facility] ([facility]) [address] [place], [address], 10/03/2024 12:11:41 10/03/19 25 10/03/2024 IRON AND TIBC UIBC 240 ug/dL 131-42 5 Not Available [facility] ([facility]) [address] [place], [address], 10/03/2024 12:11:41 10/03/19 25 10/03/2024 IRON AND TIBC iron 127 ug/dL 27-159 Not Available [facility] ([facility]) [address] [place], [address], 10/03/2024 12:11:41 10/03/19 25 10/03/2024 IRON AND TIBC iron saturation 35 % 15-55 Not Available [facility] ([facility]) [address] [place], [address], 10/03/2024 12:11:41 10/03/19 25 10/03/2024 ANNIE TIN ferritin 13 NG/mL 15-150 below low normal Not Available [facility] ([facility]) [address] [place], [address], 10/03/2024 12:11:42 10/03/19 25 10/03/2024 CBC WITH DIFFE RENTI AL/PL ATELE T WBC 3.2 x10e3 /uL 3.4-10 .8 below low normal Not Available [facility] ([facility]) [address] [place], [address], 10/03/2024 12:11:43 10/03/19 25 10/03/2024 CBC WITH DIFFE RENTI AL/PL ATELE T RBC 3.75 x10e6 /uL 3.77-5 .28 below low normal Not Available [facility] ([facility]) [address] [place], [address], 10/03/2024 12:11:43 10/03/19 25 10/03/2024 CBC WITH DIFFE RENTI AL/PL ATELE T hemoglobin 10.9 g/dL 11.1-1 5.9 below low normal Not Available [facility] ([facility]) [address] [place], [address], 10/03/2024 12:11:43 10/03/19 25 10/03/2024 CBC WITH DIFFE RENTI AL/PL ATELE T hematocrit 34.3 % 34.0-4 6.6 Not Available [facility] ([facility]) [address] [place], [address], 10/03/2024 12:11:43 10/03/19 25 10/03/2024 CBC WITH DIFFE RENTI AL/PL ATELE T MCV 92 fL 79-97 Not Available [facility] ([facility]) [address] [facility], [place], [address], 10/03/2024 12:11:43 10/03/19 25 10/03/2024 CBC WITH DIFFE RENTI AL/PL ATELE T MCH 29.1 pg 26.6-3 3.0 Not Available [facility] ([facility]) [address] [facility], [place], [address], 10/03/2024 12:11:43 10/03/19 25 10/03/2024 CBC WITH DIFFE RENTI AL/PL ATELE T MCHC 31.8 g/dL 31.5-3 5.7 Not Available [facility] ([facility]) [address] [facility], [place], [address], 10/03/2024 12:11:43 10/03/19 25 10/03/2024 CBC WITH DIFFE RENTI AL/PL ATELE T RDW 13.9 % 11.7-1 5.4 Not Available [facility] ([facility]) [address] [facility], [place], [address], 10/03/2024 12:11:43 10/03/19 25 10/03/2024 CBC WITH DIFFE RENTI AL/PL ATELE T platelets 255 x10e3 /uL 150-45 0 Not Available [facility] ([facility]) [address] [facility], [place], [address], 10/03/2024 12:11:43 10/03/19 25 10/03/2024 CBC WITH DIFFE RENTI AL/PL ATELE T neutrophils 40 % notest ab. Not Available [facility] ([facility]) [address] [facility], [place], [address], 10/03/2024 12:11:43 10/03/19 25 10/03/2024 CBC WITH DIFFE RENTI AL/PL ATELE T lymphs 50 % notest ab. Not Available [facility] ([facility]) [address] [facility], [place], [address], 10/03/2024 12:11:43 10/03/19 25 10/03/2024 CBC WITH DIFFE RENTI AL/PL ATELE T monocytes 7 % notest ab. Not Available [facility] ([facility]) [address] [facility], [place], [address], 10/03/2024 12:11:43 10/03/19 25 10/03/2024 CBC WITH DIFFE RENTI AL/PL ATELE T eos 2 % notest ab. Not Available [facility] ([facility]) [address] [facility], [place], [address], 10/03/2024 12:11:43 10/03/19 25 10/03/2024 CBC WITH DIFFE RENTI AL/PL ATELE T basos 1 % notest ab. Not Available [facility] ([facility]) [address] [facility], [place], [address], 10/03/2024 12:11:43 10/03/19 25 10/03/2024 CBC WITH DIFFE RENTI AL/PL ATELE T neutrophils (absolute) 1.3 x10e3 /uL 1.4-7. 0 below low normal Not Available [facility] ([facility]) [address] [facility], [place], [address], 10/03/2024 12:11:43 10/03/19 25 10/03/2024 CBC WITH DIFFE RENTI AL/PL ATELE T lymphs (absolute) 1.6 x10e3 /uL 0.7-3. 1 Not Available [facility] ([facility]) [address] [facility], [place], [address], 10/03/2024 12:11:43 10/03/19 25 10/03/2024 CBC WITH DIFFE RENTI AL/PL ATELE T monocytes(ab solute) 0.2 x10e3 /uL 0.1-0. 9 Not Available [facility] ([facility]) [address] [facility], [place], [address], 10/03/2024 12:11:43 10/03/19 25 10/03/2024 CBC WITH DIFFE RENTI AL/PL ATELE T eos (absolute) 0.1 x10e3 /uL 0.0-0. 4 Not Available [facility] ([facility]) [address] [place], [address], 10/03/2024 12:11:43 10/03/19 25 10/03/2024 CBC WITH DIFFE RENTI AL/PL ATELE T baso (absolute) 0.0 x10e3 /uL 0.0-0. 2 Not Available [facility] ([facility]) [address] [facility], [place], [address], 10/03/2024 12:11:43 10/03/19 25 10/03/2024 CBC WITH DIFFE RENTI AL/PL ATELE T immature granulocytes 0 % notest ab. Not Available [facility] ([facility]) [address] [place], [address], 10/03/2024 12:11:43 10/03/19 25 10/03/2024 CBC WITH DIFFE RENTI AL/PL ATELE T immature grans (abs) 0.0 x10e3 /uL 0.0-0. 1 Not Available [facility] ([facility]) [address] [place], [address], 10/03/2024 12:11:43 10/03/19 25 10/03/2024 SEDIM ENTAT ION RATE- WESTE RGREN sedimentatio n rate-westerg jenna 10 mm/HR 0-32 Not Available [facility] ([facility]) [address] [place], [address], 10/03/2024 12:11:44 10/03/19 25 10/03/2024 C-IFEOMA CTIVE PROTE IN, QUANT C-reactive protein, quant 3 mg/L 0-10 Not Available [facility] ([facility]) [address], [place], [address], 10/03/2024 12:11:45 Result Notes None recorded. Problems Name Problem SNOMED Code Status Onset Date Resolution Date Notes Provider Name and Address Organization Details Recorded Time Dysuria 30931502 Active Not Available [facility] 14:02:41 Bacterial urinary infection 518047713 Active Not Available [facility] 14:02:41 Anemia 912451865 Active Not Available [facility] 14:02:41 Iron deficiency anemia 70547076 Active 2024 RAMILA MCFARLAND Attn: Accounting ,[address], [place], [address] , [facility] 5 15:07:45 Problem Notes None recorded. Procedures Surgical History Date Name Laterality Status Provider Name and Address Organization Details Recorded Time 04/26/19 Date of Last Pap Smear completed Yesi Keane MA [facility] 06/21/2023 16:45:19 Adenoidectomy completed Frank Marie MA [facility] 06/19/2014 16:57:01 Tonsillectomy completed Frank Marie MA [facility] 06/19/2014 16:57:01 Imaging Results None recorded. Procedure Notes None recorded. Medical Equipment None Reported. Allergies No known drug allergies Medications Name Sig Start Date Stop Date Status Note LastModified by Organization Details LastModified Time cyclobenzap rine 10 mg tablet 11/27 completed Not Available Not Available Not Available amoxicillin 500 mg capsule 05/21 completed Not Available Not Available Not Available enalapril maleate 10 mg tablet Take 1 tablet every day by oral route. 11/27 completed Not Available Not Available Not Available oxybutynin chloride ER 10 mg tablet,exte nded release 24 hr TAKE 1 TABLET BY MOUTH DAILY active Not Available Not Available No t Available fluconazole 150 mg tablet Take 1 tablet every day by oral route as directed for 1 day. 05/21 completed Not Available Not Available Not Available ampicillin 500 mg capsule Take 1 capsule every 12 hours by oral route for 10 days. 10/11 completed Not Available Not Available Not Available Tubersol 5 tub. unit/0.1 mL intradermal injection solution Administe r .1ml interderm ally 05/21 completed Not Available Not Available Not Available Pyridium 100 mg tablet Take 1 tablet 3 times a day by oral route for 3 days. 10/11 completed Not Available Not Available Not Available clotrimazol e 1 % vaginal cream 10/11 completed Not Available Not Available Not Available metronidazo le 500 mg tablet Take 1 tablet twice a day by oral route for 7 days. 06/01 completed Not Available Not Available Not Available acetaminoph en 300 mg-codeine 30 mg tablet 10/11 completed Not Available Not Available Not Available sulfamethox azole 800 mg-trimetho prim 160 mg tablet Take 1 tablet every 12 hours by oral route as directed for 7 days. 07/03 completed Not Available Not Available Not Available acyclovir 800 mg tablet Take 1 tablet 5 times a day by oral route as directed for 7 days. 11/27 completed Not Available Not Available Not Available ondansetron 8 mg disintegrat ing tablet DISSOLVE 1 TABLET ON THE TONGUE EVERY 8 HOURS NEEDED FOR NAUSEA 10/02 completed Not Available Not Available Not Available famotidine 20 mg tablet TAKE 1 TABLET BY MOUTH TWICE DAILY 10/02 completed Not Available Not Available Not Available triamcinolo ne acetonide 0.025 % topical cream 10/11 completed Not Available Not Available Not Available Depo-Hot Plate Press Operator a 150 mg/mL intramuscul ar suspension Inject 1 mL every 3 months by intramusc ular route for 90 days. 05/21 completed Not Available Not Available Not Available cephalexin 500 mg capsule 06/01 completed Not Available Not Available Not Available oseltamivir 75 mg capsule 07/03 completed Not Available Not Available Not Available omeprazole 20 mg capsule,del ayed release Take 1 capsule every day by oral route for 90 days. 2024 active Not Available Not Available Not Avai lable hydrocortis one 2.5 % topical cream 07/03 completed Not Available Not Available Not Available ibuprofen 600 mg tablet 05/21 completed Not Available Not Available Not Available methylpredn isolone 4 mg tablets in a dose pack 07/03 completed Not Available Not Available Not Available ondansetron 4 mg disintegrat ing tablet 10/11 completed Not Available Not Available Not Available fluticasone propionate 50 mcg/actuati on nasal spray,suspe nsion 04/09 completed Not Available Not Available Not Available sertraline 50 mg tablet Take 1 tablet every day by oral route for 90 days. 2024 active Not Available Not Available Not Avai lable Augmentin 500 mg-125 mg tablet Take 1 tablet every 12 hours by oral route for 7 days. 10/11 completed Not Available Not Available Not Available naproxen 500 mg tablet 07/03 completed Not Available Not Available Not Available amoxicillin 875 mg-potassiu m clavulanate 125 mg tablet 07/03 completed Not Available Not Available Not Available Depo-Hot Plate Press Operator a 150 mg/mL intramuscul ar syringe Inject 1 mL every 3 months by intramusc ular route for 90 days. 11/27 completed Not Available Not Available Not Available nitrofurant oin monohydrate /macrocryst als 100 mg capsule Take 1 capsule twice a day by oral route as directed for 5 days. 10/02 completed Not Available Not Available Not Available iron 10/02 completed OTC Not Available Not Available Not Available FeroSul 325 mg (65 mg iron) tablet TAKE 1 TABLET BY MOUTH EVERY DAY 10/02 completed Not Available Not Available Not Available Plus (calcium carbonate) 27 mg iron-1 mg tablet 10/11 completed Not Available Not Available Not Available Nexplanon 68 mg subdermal implant Inject 1 implant by subcutane ous route. 10/11 completed Not Available Not Available Not Available 28 mg iron-800 mcg tablet 10/11 completed Not Available Not Available Not Available Estarylla 0.25 mg-0.035 mg tablet Take 1 tablet every day by oral route. 09/06 completed Not Available Not Available Not Available Virtussin AC 10 mg-100 mg/5 mL oral liquid 04/09 completed Not Available Not Available Not Available Vitals Date Recorded Body height Body mass index (BMI) Body weight Heart rate Systolic And Diastolic Provider Name and Address Organization Details Last Updated DateTime 05/21/2023 165.1 cm 28.7 kg/m2 67034.32 g 57 /min 98/60 mm[Hg] Felicia Thompson MA [facility] 05/21/2023 11:01:11 Date Recorded Oxygen saturation Oxygen saturation in Arterial blood by Pulse oximetry Provider Name and Address Organization Details Last Updated DateTime 06/01/2024 95 % 95 % RAMILA MCFARLAND Attn: Accounting, [place], [address], [facility] 06/14/2024 15:08:01 Date Recorded Body height Body mass index (BMI) Body weight Heart rate Systolic And Diastolic Provider Name and Address Organization Details Last Updated DateTime 06/01/2024 165.1 cm 25.1 kg/m2 82853.45 g 95 /min 103/64 mm[Hg] Yesi Keane MA [facility] 06/01/2024 11:29:33 Date Recorded Body height Body mass index (BMI) Body weight Heart rate Oxygen saturation Oxygen saturation in Arterial blood by Pulse oximetry Systolic And Diastolic Provider Name and Address Organization Details Last Updated DateTime 4 165.1 cm 28.1 kg/m2 99752.1 1 g 66 /min 99 % 99 % 123/75 mm[Hg] Yesi Keane MA [facility] 16:44:02 Date Recorded Systolic And Diastolic Provider Name and Address Organization Details Last Updated DateTime 10/02/2024 94/60 mm[Hg] Terrence MCFARLAND Attn: Accounting,[address] [place], [address], [facility] 10/02/2024 10:51:38 Date Recorded Body height Body mass index (BMI) Body weight Heart rate Oxygen saturation Oxygen saturation in Arterial blood by Pulse oximetry Provider Name and Address Organization Details Last Updated DateTime 06/09/202 5 165.1 cm 26.1 kg/m2 99805 g 73 /min 99 % 99 % Yesi Keane [place] - [facility] 5 10:45:36 Date Recorded Body height Body mass index (BMI) Body weight Heart rate Oxygen saturation Oxygen saturation in Arterial blood by Pulse oximetry Systolic And Diastolic Provider Name and Address Organization Details Last Updated DateTime 4 165.1 cm 27.6 kg/m2 42028.3 3 g 77 /min 98 % 98 % 103/65 mm[Hg] Yesi Keane [place] - [facility] 4 10:43:55 Social History Question Answer Notes LastModified by Organizat ion Details LastModified Time Tobacco Smoking Status Never [facility]oker [facility] 02/27/2020 03:39:32 Animal Exposure? No Informat ion not available 06/19/2014 What Is Your Level Of Caffeine Consumption? None [id number] Information not available 02/27/2020 How Much Tobacco Do You Chew? None [id number] Information not available 02/27/2020 What Type Of Diet Are You Following? REGULAR [id number] Information not available 02/27/2020 Which Illicit Or Recreational Drugs Have You Used? N/a [id number] Information not available 02/27/2020 Education 4 Year College Informatio n not available 11/28/2019 Have There Been Any Changes To Your Family Or Social Situation? No [id number] Information not available 02/27/2020 What Is The Fluoride Status Of Your Home? Fluoridated [id number] Information not available 02/27/2020 Are There Any Guns Present In Your Home? No [id number] Information not available 02/27/2020 Hard Of Hearing Or Deaf In One Or Both Ears? No Information not available 11/28/2019 What Is Your Home Situation? Mother [id number] Information not available 02/27/2020 Legally Blind In One Or Both Eyes? No Information not available 11/28/2019 Live Alone Or With Others? With Others Information not available 11/28/2019 Mosquito Repellent Used Routinely No Information not available 06/19/2014 What Was The Date Of Your Most Recent Tobacco Screening? 10/02/2024 Information not available 10/03/2024 How Many Children Do You Have? 1 [id number] Information not available 02/27/2020 What Is Your Parents' Marital Status? Unmarried [id number] Information not available 02/27/2020 Do You Have Any Pets? No Information not available 05/21/2023 Pool Exposure Yes Information not available 06/19/2014 Do You Use Protection During Sex? Always [id number] Information not available 02/27/2020 What Is The Name Of Your School? [employer] [id number] Information not available 02/27/2020 Do You Use Your Seat Belt Or Car Seat Routinely? Yes [id number] Information not available 02/27/2020 Are You Sexually Active? Yes [id number] Information not available 02/27/2020 Number Of Sexual Partners 1 Information not available 06/19/2014 Do You Have Any Siblings? 9 [id number] Information not available 02/27/2020 Do You Have Smoke And Carbon Monoxide Detectors In Your Home? Yes [id number] Information not available 02/27/2020 Are You Passively Exposed To Smoke? Yes Information not available 06/19/2014 How Much Tobacco Do You Smoke? No [id number] Information not available 02/27/2020 General Stress Level Medium Information not available 11/28/2019 Do You Use Sunscreen Routinely? No [id number] Information not available 02/27/2020 Has Tobacco Cessation Counseling Been Provided? Yes Information not available 06/21/2023 On What Date Was Tobacco Cessation Counseling Provided? 06/21/2023 Information not available 06/21/2023 Year In School College Informatio n not available 06/19/2014 Sex: Unknown Functional Status Question Answer Note LastModified by Organizat ion Details LastModified Time Do you use any illicit or recreational drugs? No Information not available 05/21/2023 Do you or have you ever used any other forms of tobacco or nicotine? No Information not available 05/21/2023 What is your level of alcohol consumption? None [id number] Information not available 02/27/2020 Do you or have you ever used smokeless tobacco? Never used smokeless tobacco [id number] Information not available 02/27/2020 Are you currently employed? No [id number] Information not available 02/27/2020 Are you able to care for yourself? Yes [id number] Information not available 02/27/2020 Do you or have you ever used e-cigarettes or vape? Never used electronic cigarettes [id number] Information not available 02/27/2020 What is your exercise level? None [id number] Information not available 02/27/2020 Mental Status Question Answer Note LastModified by Organization D etails LastModified Time Are you or have you been involved with bullying? No [id number] Information not available 02/27/2020 Family History Relationship Description Onset Age of this Age Resolved Age Notes LastModified by Organization Details LastModified Time Father No current problems or disability Not available 06/21 16:38:28 Mother No current problems or disability Not available 06/21 16:38:28 Medical History Condition Response Coronary Artery Disease N Other N High Blood Pressure N Atrial Fibrillation N Blood Diseases N Ear or Hearing Problems N Thyroid Problems N Kidney or Bladder Problems N Blood Clots N COPD N Depression N GI Problems N Developmental or Behavioral Disorders N Skin Problems N Premature N Anemia N Constipation N Heart Attack ([place]) N Diabetes N Anxiety Disorder N Muscle, Joint, or Bone Problems N Bedwetting N Vision or Eye Problems N Seizures/Epilepsy N Heart Problems/Murmur N Head Injury/Concussion N Acid Reflux (GERD) N Cancer N Stroke N Allergies N Asthma N ADHD N Bladder or Kidney Problems N High Cholesterol N Hepatitis N Liver Disease N Headaches N Osteoporosis N Heart Failure N Chicken Pox N Autism Spectrum Disorder (ASD) N Gynecological History Statement/Question Response Flow Moderate Date of LMP 06/11/2023 On BCP's at Conception? N STIs/STDs N Duration of Flow (days) 7 Age at Menarche 11 Current Control Method None Age at First Child 21 Frequency of Cycle (Q days) 27 Sexually Active? N Menses Monthly Y Date of Last Pap Smear 04/26/2022 Sexual Problems? N LMP Definite Desired Control Method None Obstetrics History GPAL:G 1 P 1 0 0 1 Type Value Multiple Births 0 Full Term 1 Induced 0 Spontaneous 0 Premature 0 Living 1 Ectopics 0 Total 1 Immunizations Vaccine Type Date Status Note Provider Nam e and Address Organization Details Recorded Time Influenza, split virus, quadrivalent, preservative 1 completed GLORIA HANSON NP Attn: Accounting,[address], [place], [place], [address] [place] [address], [place] [facility] 05/21/2023 10:54:44 COVID-19, mRNA, LNP-S, PF, 100 mcg/0.5mL dose or 50 mcg/0.25mL dose 1 completed GLORIA HANSON NP Attn: Accounting,[address], [place], [place], [address] [place] [address], [place] [facility] 05/21/2023 10:54:31 Influenza, split virus, quadrivalent, PF 1 completed GLORIA HANSON NP Attn: Accounting,[address], [place], [place], [address] [place] [address], [place] [facility] 05/21/2023 10:54:44 COVID-19, mRNA, LNP-S, PF, 100 mcg/0.5mL dose or 50 mcg/0.25mL dose 1 completed GLORIA HANSON NP Attn: Accounting,[address], [place], [place], [address] [place] [address], [place] [facility] 05/21/2023 10:54:31 OPV 5 completed GLORIA HANSON NP Attn: Accounting,[address], [place], [address], [place] [facility] 05/21/2023 10:54:31 OPV 5 completed GLORIA HANSON NP Attn: Accounting,[address], [place], [place], [address] [place] [address], [place] [facility] 05/21/2023 10:54:32 OPV 5 completed GLORIA HANSON NP Attn: Accounting,[address], [place], [address], [place] [facility] 05/21/2023 10:54:32 Hep B, adolescent or pediatric 5 completed GLORIA HANSON NP Attn: Accounting,[address], [place], [address], [place] [facility] 05/21/2023 10:54:32 Hep B, adolescent or pediatric 5 completed GLORIA HANSON NP Attn: Accounting,[address], [place], [address], [place] [facility] 05/21/2023 10:54:32 Hep B, adolescent or pediatric 5 completed GLORIA HANSON NP Attn: Accounting,[address], [place], [address], [place] [facility] 05/21/2023 10:54:32 meningococcal MCV4P 9 completed GLORIA HANSON NP Attn: Accounting,[address], [place], [address], [place] [facility] 05/21/2023 10:54:32 DTaP 0 completed GLORIA HANSON NP Attn: Accounting,[address], [place], [address], [place] [facility] 05/21/2023 10:54:32 Hep A, adult 5 completed Not Available [facility] 05/13/2019 02:33:28 meningococcal MCV4P 5 completed Not Available [facility] 05/13/2019 02:50:25 Influenza, split virus, quadrivalent, preservative 9 completed Not Available [facility] 05/13/2019 02:38:42 Hep A, pediatric, unspecified formulation 3 completed GLORIA HANSON NP Attn: Accounting,[address], [place], [address], [place] [facility] 05/21/2023 10:53:34 IPV 0 completed GLORIA HANSON NP Attn: Accounting,[address], [place], [address], [place] [facility] 05/21/2023 10:54:31 Hib, unspecified formulation 5 completed GLORIA HANSON NP Attn: Accounting,[address], [place], [address], [place] [facility] 05/21/2023 10:53:33 DTaP, unspecified formulation 5 completed GLORIA HANSON NP Attn: Accounting,[address], [place], [address], [place] [facility] 05/21/2023 10:53:34 meningococcal B, unspecified 9 completed GLORIA HANSON NP Attn: Accounting,[address], [place], [address], [place] [facility] 05/21/2023 10:54:44 Tdap 9 completed GLORIA HANSON NP Attn: Accounting,[address], [place], [address], [place] [facility] 05/21/2023 10:54:31 DTaP, unspecified formulation 5 completed GLORIA HANSON NP Attn: Accounting,[address], [place], [address], [place] [facility] 05/21/2023 10:53:34 IPV 5 completed GLORIA HANSON NP Attn: Accounting,[address], [place], [address], [place] [facility] 05/21/2023 10:54:44 DTaP, unspecified formulation 5 completed GLORIA HANSON NP Attn: Accounting,[address], [place], [address], [place] [facility] 05/21/2023 10:53:34 MMR 0 completed GLORIA HANSON NP Attn: Accounting,[address], [place], [address], [place] [facility] 05/21/2023 10:53:33 Hep B, unspecified formulation 5 completed GLORIA HANSON NP Attn: Accounting,[address], [place], [address], [place] [facility] 05/21/2023 10:54:44 varicella 7 completed GLORIA HANSON NP Attn: Accounting,[address], [place], [address], [place] [facility] 05/21/2023 10:53:33 Hib, unspecified formulation 5 completed GLORIA HANSON NP Attn: Accounting,[address], [place], [address], [place] [facility] 05/21/2023 10:53:33 DTaP, unspecified formulation 6 completed GLORIA HANSON NP Attn: Accounting,[address], [place], [address], [place] [facility] 05/21/2023 10:53:34 Hep B, unspecified formulation 5 completed GLORIA HANSON NP Attn: Accounting,[address], [place], [address], [place] [facility] 05/21/2023 10:54:44 Hep B, unspecified formulation 5 completed GLORIA HANSON NP Attn: Accounting,[address] [facility], [place], [address], [place] [facility] 05/21/2023 10:54:44 MMR 6 completed GLORIA HANSON NP Attn: Accounting,[address], [place], [address], [place] [facility] 05/21/2023 10:53:33 IPV 5 completed GLORIA HANSON NP Attn: Accounting,[address], [place], [address], [place] [facility] 05/21/2023 10:54:44 Hib, unspecified formulation 6 completed GLORIA HANSON NP Attn: Accounting,[address], [place], [address], [place] [facility] 05/21/2023 10:53:33 DTaP, unspecified formulation 0 completed GLORIA HANSON NP Attn: Accounting,[address] [facility], [place], [address], [place] [facility] 05/21/2023 10:54:44 varicella 8 completed GLORIA HANSON NP Attn: Accounting,[address] [facility], [place], [address], [place] [facility] 05/21/2023 10:53:33 IPV 5 completed GLORIA HANSON NP Attn: Accounting,[address] [facility], [place], [address], [place] [facility] 05/21/2023 10:54:44 Hib, unspecified formulation 5 completed GLORIA HANSON NP Attn: Accounting,[address] [facility], [place], [address], [place] [facility] 05/21/2023 10:53:33 Tdap 5 completed RAMILA MCFARLAND Attn: Accounting,[address] [facility], [place], [address], [place] [facility] 10/03/2024 12:52:24 Past Encounters Encounter ID Performer Location Encounter Start Date Encounter Closed Date Diagnosis/Indication Diagnosis SNOMED-CT Code Diagnosis ICD10 Code Diagnosis Note [id number] FABIAN Cutler [facility] (Peds) [address] [place] [address] 06/19/2014 16:16:06 06/19/2014 18:05:55 Active or passive immunization [id number] Dysuria [id number] Gilma Salinas MD [facility] (LINK TRAINER MECHANIC) [address] [place] [address] 07/03/2014 10:33:49 07/03/2014 13:32:52 Dysuria [id number] Gilma Salinas MD [facility] (LINK TRAINER MECHANIC) [address] [place] [address] 08/31/2014 10:28:38 08/31/2014 15:56:34 Dysuria [id number] Gilma Salinas MD [facility] (LINK TRAINER MECHANIC) [address] [place] [address] 03/12/2015 15:53:00 03/12/2015 17:56:32 Dysuria 64324382 R30.0 High risk sexual behavior 751412213 Z72.51 [id number] Gilma Salinas MD [facility] (LINK TRAINER MECHANIC) [address] [place] [address] 04/16/2015 12:12:33 04/16/2015 14:37:14 Bacterial urinary infection 545795591 N39.0 Anemia 782002674 D64.9 [id number] Gilma Salinas MD [facility] (LINK TRAINER MECHANIC) [address] [place] [address] 12/13/2015 11:07:34 12/13/2015 13:53:51 Dysuria 50528425 R30.0 Anemia 511175675 D64.9 High risk sexual behavior 743882319 Z72.51 Contraception care 71601 5005 Z30.40 [id number] Gilma Salinas MD [facility] (LINK TRAINER MECHANIC) [address] [place] [address] 12/31/2015 12:02:43 12/31/2015 14:43:27 Contraception care 790980209 Z30.40 Bacterial urinary infection 976246212 N39.0 [id number] Gilma Salinas MD [facility] (LINK TRAINER MECHANIC) [address] [place] [address] 01/21/2016 11:29:10 01/21/2016 13:55:15 Contraception care 623423157 Z30.40 Bacterial urinary infection 045225778 N39.0 [id number] Gilma Salinas MD [facility] (LINK TRAINER MECHANIC) [address] [place] [address] 03/03/2016 15:06:46 03/03/2016 16:59:25 Unplanned 87042180 Z64.0 Bacterial urinary infection 040052716 N39.0 Urinary tr act infectious disease 57613876 N39.0 [id number] Gilma Salinas MD [facility] (LINK TRAINER MECHANIC) [address] [place] [address] 07/01/2017 16:32:50 07/01/2017 17:33:17 Contraception care 977682077 Z30.40 [id number] Gilma Salinas MD [facility] (LINK TRAINER MECHANIC) [address] [place] [address] 07/06/2017 11:44:15 07/06/2017 14:12:18 Gynecologic examination 18015675 Z01.419 Contraception care 92440 5005 Z30.40 [id number] Gilma Salinas MD [facility] (LINK TRAINER MECHANIC) [address] [place] [address] 10/11/2017 12:54:18 10/11/2017 14:31:38 Uses depot contraception 188145217 Z30.42 Contraception care 24635 5005 Z30.40 [id number] Gilma Salinas MD [facility] (LINK TRAINER MECHANIC) [address] [place] [address] 01/10/2018 11:57:59 01/10/2018 12:31:36 Initiation of depot contraception done [id number] 80029 Z30.028 [id number] Gilma Salinas MD [facility] (LINK TRAINER MECHANIC) [address] [place] [address] 08/01/2018 12:46:57 08/01/2018 15:07:28 Contraception care 874417026 Z30.40 High risk sexual behavior 446591254 Z72.51 [id number] Gilma Salinas MD [facility] (LINK TRAINER MECHANIC) [address] [place] [address] 08/08/2018 12:39:36 08/08/2018 13:25:06 Contraception care 684622090 Z30.40 Anemia 412802312 D64.9 [id number] GENOVEVA Dominique-[facility] [address] [place] [address] 10/18/2018 14:17:04 10/19/2018 09:11:35 Sore lip 455351637 K13.0 Open wound of lip without complication 49821651 S01.501A pt report trialing otc hydrocorti sone without relief. will attempt to attack lesion from an infectious standpoint vs. a herpetic position. pt to fu c pcp within 2 weeks. report to ed if s/s worsen. [id number] Gilma Salinas MD [facility] (LINK TRAINER MECHANIC) [address] [place] [address] 11/07/2018 11:51:55 11/08/2018 09:41:52 Contraception care 307796303 Z30.40 Venereal d isease screening 137891284 Z11.3 Anemia 323213899 D64.9 [id number] [facility] [address] [place] [address] 02/08/2019 11:17:53 02/08/2019 15:11:01 Vaginal discharge 746400247 N89.8 Administra tion of influenza vaccine 29036924 Z23 Contraception care 58578 5005 Z30.40 Anemia 362214440 D64.9 [id number] ELZA Quinteros [facility] (LINK TRAINER MECHANIC) [address] [place] [address] 02/22/2019 10:08:41 02/22/2019 15:36:31 Bacterial vaginosis 148687167 N76.0 [id number] ELZA Quinteros [facility] (LINK TRAINER MECHANIC) [address] [place] [address] 05/03/2019 14:33:09 05/04/2019 10:11:24 Contraception care 699816692 Z30.40 Vaginal discharge 977133 006 N89.8 [id number] ELZA Quinteros [facility] (LINK TRAINER MECHANIC) [address] [place] [address] 10/17/2019 12:05:24 10/17/2019 14:37:03 Contraception care 567047282 Z30.40 [id number] ELZA Quinteros [facility] (LINK TRAINER MECHANIC) [address] [place] [address] 10/20/2019 15:03:49 10/25/2019 11:21:50 Contraception care 879580922 Z30.40 Venereal d isease screening 368752876 Z11.3 [id number] RAMILA MCFARLAND [facility] [address] [place] [address] 11/28/2019 14:14:52 11/30/2019 07:44:59 Sleep apnea 50511194 G47.30 snoring x > 1 year. Her family and friends have told her she snores loudly and sometimes stops breathing. She wakes up gasping for air. She usually lays down 9:30-10. She does not fall asleep until later. She does have multiple caffeine drinks during the day. she does eat late at night. she does have the TV on at night. vitals wnl. On exam lungs are clear, RRR. - sleep study- discussed sleep hygiene Anxiety 78983814 F41.9 patient presents with chest palpitatio ns, shortness of breath when anxious. She says she has high nerves and it has gotten worse lately. She has trouble sleeping, is irritable. Will check labs first. we did discuss possible treatment if symptoms worsen. She is to f/u in one month. she denies depression . Denies SI/HI. - discussed diet- discussed excercise 30 mins 5x week- discussed cutting back on caffeine as it could be causing palpitatio ns. she is having 3-5 cans of soda, [id number] Lashae Chacko RN-[facility] (LINK TRAINER MECHANIC) [address] [place] [address] 01/30/2020 16:32:31 01/30/2020 17:26:10 Contraception care 104211233 Z30.40 [id number] RAMILA MCFARLAND [facility] [address] [place] [address] 07/03/2020 10:11:10 07/05/2020 11:52:19 Contraception care management 799229333 Z30.9 patient switching from depo to OCP. negative test. Last depot was about 15 weeks ago. provided answer to patient questions and use of medication . Hyperkalemia 83370753 E8 7.5 patient drining 3-4 bottles of orange juice daily.advi sed cutting this down and increasing water. Will make sure K has not continues to increase since reading of 6 in the ER. ECG in ER normal. She denies palpitatio ns, dizziness, cp today. RRR. [id number] Gilma Salinas MD [facility] (LINK TRAINER MECHANIC) [address] [place] [address] 08/27/2020 17:21:58 08/29/2020 14:31:23 Contraception care 881753235 Z30.40 [id number] Gilma Salinas MD [facility] (LINK TRAINER MECHANIC) [address] [facility] [place] [address] 09/06/2020 17:34:32 09/09/2020 15:38:43 Contraception care 510506380 Z30.40 [id number] Gilma Salinas MD [facility] (LINK TRAINER MECHANIC) [address] [place] [address] 11/29/2020 17:05:01 12/02/2020 10:09:26 Vaginitis 11842205 N76.0 Contraception care 97857 5005 Z30.40 [id number] Gilma Salinas MD [facility] (LINK TRAINER MECHANIC) [address] [place] [address] 04/09/2021 17:16:07 04/12/2021 10:33:14 Contraception care 188967566 Z30.40 [id number] RAMILA MCFARLAND [facility] [address] [place] [address] 04/15/2021 15:23:16 04/16/2021 09:18:44 Tuberculosis screening 217031934 Z11.1 f/u for reading Adult heal th examination 446596150 Z00.00 Alleysia here for schol physical. ROS non-contri butory. no complaints today. 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 cleared for work. 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 Pap done; last pap 07/06/2017 NILM2. STI screening completed. Pt verbally consented to HIV3. Pt is using abstinence for control.4. Discussed breast self awareness5 . Offered Covid vaccine. Patient declined. Pt already received __2_ doses.6. Educated on STI reduction and prevention . Encouraged condom use.7. 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 Urgent josé lizandro to urinate 30837458 R39.15 UA dip is suggestive of UTI - leukocytes present and with symptoms will treat for UTI1. Urine culture sent2. RX sent for Nitrofuran toin 100 mg 1 PO BID x 5 days.3. RX sent for Fluconazol e 150 mg PO x 1 for usage at end of antibiotic s for yeast infection. 4. Discussed s/sx of pyelonephr itis and when to go to ER Venereal d isease screening 255011797 Z11.3 STI screening per patient request. Patient verbally consented to HIV. Contracept ion care management 651541555 Z30.9 Contracept kasia options were discussed. The patient would like to use abstinence Overweight 943225256 E66 .3 [id number] Amelia Suárez MD [facility] (LINK TRAINER MECHANIC) [address] [place] [address] 05/21/2023 10:45:16 05/25/2023 14:02:13 Acute urinary tract infection 785635122 N39.0 UA dip is suggestive of UTI1. Urine culture sent from urgent care2. Already taking Nitrofuran toin 100 mg 1 PO BID x 5 days.3. Discussed s/sx of pyelonephr itis and when to go to ER Overweight 230757434 E66 .3 Positive s creening for depression on PHQ-9 (Patient Health Questionnaire 9) 5747943681 73740 Z13.31 PHQ9 today 10Denies any SI or HIWill reevaluate next visit [id number] RAMILA MCFARLAND [facility] [address] [place] [address] 06/21/2023 16:35:03 06/21/2023 17:20:27 Fatigue 83633211 R53.83 - R/O thyroid imbalance, predm, anemia Generalize d anxiety disorder 07512978 F41.1 ANNETTE 17sleeps 12--6 but wakes up at 3am half the timecaffei ne - 3 orange fantashe would like to wait for results and try lifestyle changesf/u one month Increased frequency of urination 974399429 R35.0 r/o uri Cholesterol screening 27 7890371 Z13.220 Overweight 733636412 E66 .3 [id number] Derek munguia MD [facility] [address] [place] [address] 10/18/2023 10:33:56 10/22/2023 08:36:08 Anxiety 74322261 F41.9 patient presents with chest palpitatio ns, shortness of breath when anxious. She says she has high nerves and it has gotten worse lately. She has trouble sleeping, is irritable. at this time she is more open to medication s. discussed were black box warning and side effects. She is interested in therapy and given chestnut number. advised avoiding caffeine. exercise. - discussed diet- discussed excercise 30 mins 5x week -Patient was educated on his prescribed medication s, rationale for medication s, dosing indication s, adverse reactions, black box warning, dosing indication s, SE (e.g., decreased libido, weight gain, gynecomast ia, and galactorrh ea) and the risks and benefits. -Call center with questions/ concerns. Go to ER or call 911 for crisis (e.g., suicidal behaviors, suicidal ideations, intent or plan emerge). Additional ly, patient has suicide hotline #. - f/u one month - call with questions [phone] Yoav Murphy MD [facility] [address] [place] [address] 06/01/2024 11:21:31 06/01/2024 11:40:16 Anxiety 31196699 F41.9 patient presents with chest palpitatio ns, shortness of breath when anxious. She says she has high nerves and it has gotten worse lately. She has trouble sleeping, is irritable. at this time she is more open to medication s. discussed were black box warning and side effects. She is interested in therapy and given chestnut number. advised avoiding caffeine. exercise. - discussed diet- discussed exercise 30 mins 5x week-Patisaranya mccarty was educated on his prescribed medication s, rationale for medication s, dosing indication s, adverse reactions, black box warning, dosing indication s, SE (e.g., decreased libido, weight gain, gynecomast ia, and galactorrh ea) and the risks and benefits.- Call center with questions/ concerns. Go to ER or call 911 for crisis (e.g., suicidal behaviors, suicidal ideations, intent or plan emerge). Additional ly, patient has suicide hotline #.- f/u one month- call with questions Iron defic iency anemia 52497750 D50.9 repeat today Overweight 300795645 E66 .3 [id number] Yoav Murphy MD [facility] [address] [place] [address] 10/02/2024 10:40:23 10/06/2024 13:41:42 Iron deficiency anemia 97144341 D50.9 Here to recheck iron at this time. She was taking it daily but it does cause constipati on. Anxiety 68889959 F41.9 patient is doing very well on sertraline and we will send refills. She denies any side effects with medication . - discussed diet- discussed exercise 30 mins 5x week-Shirlene bibiana was educated on his prescribed medication s, rationale for medication s, dosing indication s, adverse reactions, black box warning, dosing indication s, SE (e.g., decreased libido, weight gain, gynecomast ia, and galactorrh ea) and the risks and benefits.- Call center with questions/ concerns. Go to ER or call 911 for crisis (e.g., suicidal behaviors, suicidal ideations, intent or plan emerge). Additional ly, patient has suicide hotline #[phone].- f/u 6 month- call with questions Overweight 686943235 E66 .3 bmi 26.1 Pain of mu ltiple joints 65973388 M25.50 Patient who states her arthritis runs in her family complains of painb/l toes left ankle bl hands and left thumb. she also complains of chronicfat igue. she does have a history of anemia. We will rule out inflammato ry Causes. Gastric reflux 308368554 K21.9 1.Avoid lying flat 3 to 4 hours after eating or drinking. 2.Elevate the head of bed 4-8 inches. 3.Avoid tight clothing around the waist. 4.Decrease dietary fat intake. 5. Avoid acidic foods (citrus and tomato-bas ed products), alcohol, caffeinate d beverages, chocolate, onions, garlic, salt, and peppermint oil. 6. Avoid large meals. 7. Avoid drinking coffee, or carbonated beverages. 8. Weight loss can help with symptoms, try to diet and exercise. Difficulty swallowing food 690606973 R13.10 Patient is having hard time swallowing food and reports a history of acid reflux not currently being treated. She is not experience d choking or pain with swallowing . She often feels like drinking water helps push food through faster. Immunization due 1814674 08 Z23 Health Concerns Section Related Observation LastModified by Organization Detai ls LastModified Time None Recorded Concern Status LastModified by Organization Details LastModified Time None Recorded Advance Directives Directive None Recorded Payers Insurance Date Sequence Insurance Name Policy Number Policy Balderas Covered Member ID Balderas Member ID Guarantor Name 10/02/2024 1 [place] [id number] Siobhan Le [id number] Siobhan Le 10/02/2024 1 [facility] [id number] Siobhan Le [id number] Siobhan Le 10/02/2024 2 [place] Siobhan Le [id number] Siobhan Le 10/02/2024 2 [facility] PRIOR TO 10/24/2020 (MEDICAID REPLACEMENT - HMO) Siobhan Le [id number] Siobhan Le 10/02/2024 [facility] ON OR AFTER 10/24/20 (MEDICAID REPLACEMENT - HMO) Siobhan Le [id number] Siobhan Le 10/02/2024 1 [facility] PRIOR TO 10/24/2020 (MEDICAID REPLACEMENT - HMO) Siobhan Le [id number] Siobhan Le 10/02/2024 3 [place] [facility]ID Siobhan Le [id number] Siobhan Le 10/02/[address] [facility] PRIOR TO 10/24/2020 (MEDICAID REPLACEMENT - HMO) Siobhan Le [id number] Siobhan Le 10/06/2024 1 [employer] (HMO) [id number] Siobhan Le [id number] Siobhan Le 10/02/2024 1 [employer] [id number] Siobhan Le [id number] Siobhan Le Notes Date Note Type Note Provider Name and Address Organization Details Recorded Time 05/21/2023 text/html Siobhan Pérez n a 27yo here for follow up after being in urgent care yesterday and treated for a UTI. She was having urinary frequency, incomplete emptying, and urgency. Started Macrobid 100mg 1 PO BID x 5 days yesterday.Denies fever, chills, n/vDenies pyuria or hematuria.Denies any vaginal discharge, odor, burning or itching.LMP: 4Birth control: Currently not active for 2 yearsLast Pap: 08/27/2022 GUSTAVO HANSON NP Attn: Accounting,[address] [facility] [address], [place], [address], [facility] 05/21/2023 12:35:04 06/21/2023 text/html Siobhan bryant a 28 YO F presenting for I always feel dehydrated Last year she went to the [facility] and passed out. She was taken to ER and was told she was dehydrated and had uti. She admits she did not drink or eat anything all day that day. Since that day she continues to be heat intolerant. She feels it when in hot shower, I feel weak and like i'm falling out. She feels like she is always thirsty. She drinks 3 orange fantas everyday. Her urine is light yellow. denies cp, sob, headaches, pre-syncope, falls, She is not sleeping well. She works for [employer]. Admits to being stressed. Her last sip of soda is late at night. RAMILA MCFARLAND Attn: Accounting,[address] [facility] [address], [place], [address], [facility] 06/22/2023 19:55:33 10/18/2023 text/html Alleysia here to f/u for urgent care visit Wednesday she had migraine affecting her left eye. She took tylenol with mild improvement. When waking up wednesday she had headache again with left eye affected again. She took tylenol and drank water one at work. She got anxious and hot and her limbs started to shake. She attempted to drive to ER but stopped for about 40min due to her heart racing. Urgent care in [facility] dx her with panic attack. She states she is irritable all the time and affecting her relationships. RAMILA MCFARLAND Attn: Accounting, [address] [facility], [place], [address], [facility] 10/18/2023 20:19:24 06/01/2024 text/html Alleysia here to f/u for urgent care visit Alleysia c/o of wrosening anxiety, trouble with sleep, having palpitations with anxiety. Shw would like to start medication this time. RAMILA MCFARLAND Attn: Accounting,[address] [facility], [place], [address], [facility] 06/14/2024 15:08:33 10/02/2024 text/html Alleysia here to f/u On anemia but she also brings multiple concerns today she states that sertraline is doing very well with her and she would like to continue medication at this time. Her anxiety is much better controlled and she does not experience any side effects. She states she has been increasingly fatigued for a few months no matter how well she sleeps. She sleeps mostly 7-8 hours a night uninterrupted. She feels tired from the moment she wakes up and all through the day. She also states that arthritis runs in her family and she often notices pain in her feet and her hands and thought this is normal. She also complains of acid reflux that is worse at nighttime. She does eat late at night. Over time she feels like when she swallows food the food goes down very slowly down her throat and often has to drink water to get the food down. She denies choking. This is not happen with fluids. RAMILA MCFARLAND Attn: Accounting,[address] [place], [address], [facility] 10/03/2024 12:57:37 OBGyn Episode No OBEpisode recorded.
--- NOTE | 2024-11-10 11:47 | P.PNAN_ITS ---
Anes - Initial Pre Proc Eval Procedure: Operation Date: 11/10/24 13:15 Proposed Procedures p Esophagogastroduodenoscopy - Porfirio Samson MD Date/Time: 11/10/24 11:47 Surgeon: Porfirio aSmson MD Pre Op Diagnosis: Dysphagia, unspecified Patient Data Age: 29 Gender: F Height: 1.65 m Weight: 73 kg Allergies Allergy/AdvReac Type Severity Reaction Status Date / Time amoxicillin Allergy Unknown Nausea and Verified 11/10/24 12:31 Vomiting Home Medications ?Medication ?Instructions ?Recorded ?Confirmed ?Type sertraline 50 mg tablet 50 mg PO DAILY 10/17/24 11/10/24 History omeprazole 20 mg capsule,delayed 20 mg PO DAILY #30 caps 10/18/24 11/10/24 Rx release oxybutynin chloride 10 mg 10 mg PO DAILY 10/30/24 11/10/24 History tablet,extended release 24 hr Patient hx anesthesia problems: none Family hx anesthesia problems: none Results Review: All pre-operative results and documents have been reviewed as part of the pre- operative evaluation. FORMERLY [facility], [facility]–1983 Past Medical History Medical History Anxiety DOMO (iron deficiency anemia) GERD (gastroesophageal reflux disease) Surgical History Surgical History Hx of tonsillectomy Social History Social History Smoking status: Never smoker Second hand tobacco smoke exposure: No Alcohol intake: never Substance use: never Substance use type: does not use Living arrangements: alone Spiritual care concerns: No Anes - Eval Final PreProcedure Day of Procedure 11/10/24 11:47 Patient weight: normal Heart: regular rate and rhythm Lungs: normal air movement Airway: Mallampati scale class II Neurological: alert and oriented Last oral intake: >/= 8 hours ASA classification: II Emergent: no Anesthetic plan: proceed Anesthesia type and monitoring: general GIVS and standard monitoring Results Review: All pre-operative results and documents have been reviewed as part of the pre- operative evaluation. Informed Consent: The patient's anesthetic plan and its attendant risks and benefits were discussed with the patient/family/POA. Questions were solicited and answers provided to the satisfaction of the patient/family/POA.
[2024-11-10 12:32] VITALS: BP 99/72; PULSE 60; RESP 16; TEMP 36.3; O2SAT 95; BMI 26.6
[2024-11-10 12:39] LABS: BEDSIDEPREGUCG Negative (Negative)
[2024-11-10] MEDS: LACTATED RINGERS 1,000 ML 150 ML IV CONT (13:16)
--- NOTE | 2024-11-10 13:59 | WPDHPUPDATE1 ---
History and Physical Update Update Date/Time: 11/10/24 13:59 History and Physical has been reviewed, including an updated exam of the patient. There are NO changes in the patient's condition. Risks, benefits, and alternatives have been discussed and questions answered. Patient agrees to proceed with procedure.
--- NOTE | 2024-11-10 14:11 | S_PTH ---
PATIENT: Siobhan Le LOC: [facility] Ross#:[id number] AGE/SX: 29/F ROOM: RE11/10/[address]: Porfirio Samson MD : 1995 BED: DIS: 11/10/2024 SPEC #: [id number] RECD: 11/13/24 07:58 STATUS: CARMINA RE #: [id number] JUAN: 11/10/24 14:[address]: Porfirio Samson DEPT: [facility] Surgical RECD BY: Grecia Clark ENTERED: 11/13/24 07:59 SP TYPE: Surgical OTHR DR: Kristen Campos, PA Tissues: A - Esophageal Biopsy B - Gastric Biopsy Procedures: Hematoxylin and Eosin Stain Gross and Microscopic Level 4 H.Pylori
[2024-11-10 14:15] VITALS: BP 86/50; PULSE 66; RESP 19; O2SAT 100
[2024-11-10 14:25] VITALS: BP 92/52; PULSE 70; RESP 17; O2SAT 100
[2024-11-10 14:35] VITALS: BP 108/82; PULSE 56; RESP 17; O2SAT 100
== END 2024-11-10 14:42 | disposition home or self-care (01) ==
PROVIDERS: Anesthesiology; PCP Physician Assistant; Referring Provider Nurse Practitioner; Visit Provider Internal Medicine Gastroenterology
PROC: 0DJ08ZZ Inspection of Upper Intestinal Tract, Via Natural or Artificial Opening Endoscopic (ICD-10-PCS; CPT 43239; principal; 2024-11-10 13:15)
DX: K21.00 Gastro-esophageal reflux disease with esophagitis, without bleeding (principal); K29.50 Unspecified chronic gastritis without bleeding; B96.81 Helicobacter pylori [H. pylori] as the cause of diseases classified elsewhere
CPT/HCPCS: 43239; 88305; 88342; J2003; J2704; J7120

== ENCOUNTER 2025-02-08 15:45 | Outpatient (CLI) | payer OTHER, SELFPAY ==
--- OUTSIDE RECORDS SUMMARY | 2025-02-08 17:43 | XMS_ITS | Clinical Summary ---
Author Organization [facility] Address [address] [place] [address] Care Team Providers Care Manager Medical Device Name Role Phone None, Provider MD Primary Care Provider Unavaila ble Allergies Active Allergy Reactions Criticality Noted Date Comments Amoxicillin Headache Low 11/23/2024 Medications Ferrous Sulfate (IRON) 28 MG Tab Act mathew sertraline (ZOLOFT) 50 MG tablet Take 1 tablet (50 mg total) by mouth daily. 06/01/2024 Active oxybutynin XL (DITROPAN-XL) 10 MG 24 hr tablet Take 1 tablet (10 mg total) by mouth daily. Active Active Problems No known active problems Encounters Date Type Department Care Team Description 01/01/2025 5:09 PM CDT - 01/01/2025 5:39 PM CDT Hospital Encounter 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 Legal Sex Female 4:08 PM CDT Gender Identity Not on file Sexual Orientation Not on file Last Filed Vital Signs Vital Sign Reading Time Taken Comments Blood Pressure 125/67 01/01/2025 5:16 PM CDT Pulse 72 01/01/2025 5:16 PM CDT Temperature 37.3 C (99.2 F) 01/01/2025 5:16 PM CDT Respiratory Rate 18 01/01/2025 5:16 PM CDT Oxygen Saturation 98% 01/01/2025 5:16 PM CDT Inhaled Oxygen Concentration - - Weight 68 kg (150 lb) 01/01/2025 5:16 PM CDT Height 165.1 cm (5' 5) 01/01/2025 5:16 PM CDT Body Mass Index 24.96 01/01/2025 5:16 PM CDT Plan of Treatment Health Maintenance Due Date Last Done Comments Cervical Cancer Screening Pap Smear (Age 30 to 64) Every 3 Years 1994 Annual Physical 1997 Hepatitis C 2012 HPV Vaccines (1 - 3-dose SCDM series) 2021 Cervical Cancer Screening Pap with HPV Testing (Age 30 to 64) Every 5 Years 2024 Cervical Cancer Screening with HPV 2024 COVID-19 Vaccine ( season) 2024 02/14/2021, 11/15/2020 Influenza Adult (#1) 2025 02/06/2021, 02/09/20 19 DTaP, Tdap and Td Vaccines (8 - Td or Tdap) 10/02/2034 10/02/2024, 11/28/2008, 12/11/1999, Additional history exists Hepatitis B Vaccines Completed 1994, 1994, 1994, [...] on patient's age to complete this topic Procedures Procedure Name Priority Date/Time Associated Diagnosis Comments CORONAVIRUS (COVID 19) STAT 01/01/2025 5:15 PM CDT STREP A RAPID STAT 01/01/2025 5:15 PM CDT from Last 3 Months Results * (ABNORMAL) CORONAVIRUS (COVID 19) (01/01/2025 5:15 PM CDT) CORONAVIRUS SARS COV 2 RNA POSITIVE( AA) NEGATIVE 01/01/2025 5:28 PM CDT [facility] Comment: THE ID NOW COVID-19 2.0 TEST HAS BEEN AUTHORIZED BY THE FDA UNDER EAU FOR USE BY AUTHORIZED LABORATORIES. PERFORMED BY NUCLEIC ACID AMPLIFICATION FOR MOLECULAR QUALITATIVE DETECTION OF SARS-COV-2. Successful Call: C19M called 01/01/2025 05:29 PM to KEYLA VILLEGAS MD ( /KEYLA VILLEGAS MD) by [id number]. SPECIMEN TYPE NASAL 01/01/2025 5:16 PM CDT [facility] NASAL STRUCTURE / Unknown 01/01/2025 5:15 PM CDT Keyla Villegas MD MICROBIOLOGY - GENERAL ORDJoseph [facility] Final Result [id number] [place] [address], [place] * STREP A RAPID (01/01/2025 5:15 PM CDT) SPECIMEN TYPE THROAT 01/01/2025 5:16 PM CDT [facility] RAPID STREP TEST NEGATIVE NEGATIVE 01/01/2025 5:28 PM CDT [facility] STRUCTURE OF ANTERIOR REGION OF NECK / Unknown 01/01/2025 5:15 PM CDT us Keyla Villegas MD MICROBIOLOGY - GENERAL ALBERTO KHAN Final Result [facility] [address] [place] [address], [place] from Last 3 Months Insurance [facility] [facility] Care Teams Manager Medical Device Relationship Specialty Start Date End Date None, Provider, PCP - General UNKNOWN PHYSICIAN SPECIALTY 01/01/25
--- OUTSIDE RECORDS SUMMARY | 2025-02-08 17:43 | XMS_ITS | Clinical Summary ---
Author Organization [facility] Address [address] 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 This disclosure is being madepursuant to the Care Everywhere program and may not contain all information available regarding this patient. Last updated 18.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 Gender Identity Not on file Sexual Orientation Not on file Plan of Treatment Health Maintenance Due Date Last Done Comments HIV SCREENING 2009 HEPATITIS C SCREENING 06/02/2012 DTAP/TDAP/TD VACCINES (1 - Tdap) 2013 HEPATITIS B VACCINE (1 of 3 - 19+ 3-dose series) 2013 PAP SMEAR 2015 HPV VACCINE (1 - 3-dose SCDM series) 2021 DEPRESSION SCREENING 04/26/2024 COVID-19 VACCINE (1 - 2023-2 5 season) 2024 INFLUENZA VACCINE (#1) 2024 ZOSTER VACCINE (1 [...] patient's age to complete this topic Insurance SELF PAY NO INSURANCE Member Subscriber Plan / Payer (Ef fective for All Dates) Name:Marcia Conti Member ID:Not on file Relation to Subscriber:Not on file Name:MARCIA CONTI Subscriber ID:Not on file (Home) Address: [address] [place] [address] Payer ID:Not on file Group ID:Not on file Type:Self Pay Address: [place], [place]
--- OUTSIDE RECORDS SUMMARY | 2025-02-08 17:43 | XMS_ITS | Clinical Summary ---
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
--- OUTSIDE RECORDS SUMMARY | 2025-02-08 17:43 | XMS_ITS | Clinical Summary ---
Author Organization [facility] Address [address] [place] [id number] Care Team Providers Care Restaurant Associate Name Role Phone Kristen Campos Primary Care Provider + Allergies Active Allergy Reactions Criticality Noted Date Comments Amoxicillin Headache Low 11/23/2024 Encounters Date Type Department Care Team Description 11/23/2024 10:12 AM CDT - 11/23/2024 10:55 AM CDT Emergency [address] [address] Exposure to pesticide (Primary Dx) Discharge Disposition: Discharge to home or self care from Last 3 Months Social History Tobacco Use Types Packs/Day Years Used Date Smoking Tobacco: Never Assessed Personal Safety Answer Date Recorded Have you ever been in or are you currently in a harmful physical or emotional relationship or is someone making you feel afraid or unsafe? 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 Gender Identity Not on file Sexual Orientation Not on file Last Filed Vital Signs Vital Sign Reading Time Taken Comments Blood Pressure 108/58 11/23/2024 10:55 AM CDT Pulse 60 11/23/2024 10:55 AM CDT Temperature 36.6 C (97.9 F) 11/23/2024 9:43 AM CDT Respiratory Rate 19 11/23/2024 9:43 AM CDT Oxygen Saturation 100% 11/23/2024 10:55 AM CDT Inhaled Oxygen Concentration - - Weight 62.6 kg (138 lb 0.2 oz) 11/16/2018 2:53 P M CDT Height 165.1 cm (5' 5) 11/23/2024 9:43 AM CDT Body Mass Index 22.97 11/16/2018 2:53 PM CDT Plan of Treatment Health Maintenance Due Date Last Done Comments Cervical Cancer Screening 1994 Depression Screening 1994 Hepatitis C Screening 1994 Regular Well Visit/Exam 18-64 2012 HPV Vaccines (1 - 3-dose SCDM series) 2021 Covid-19 Vaccine (3 - 2024- season) 2024 02/14/2021, 11/15/2020 Influenza Vaccine (#1) 2024 02/06/2021, 2018 DTaP/Tdap/Td Vaccine (8 - Td or Tdap) 10/02/2034 10/02/2024, 11/28/2008, 12/11/1999, Additional history exists Hepatitis B Screening Completed 1994 , 1994, 1994 Varicella Vaccines Completed 03/03/2007, 01/04/1998 Pneumococcal vaccine <65 Aged Out No longer eligible based on patient's age to complete this topic Insurance [facility] Care Teams Restaurant Associate Relationship Specialty Start Date End Date Kristen Campos PA [address] [place] [phone] PCP - General Physician Equipment Processor 11/23/24
== END 2025-02-08 15:46 | disposition home or self-care (01) ==
LOC: ANHLAB 15:46
PROVIDERS: PCP Physician Assistant; Visit Provider Nurse Practitioner
DX: A04.8 Other specified bacterial intestinal infections (principal)
CPT/HCPCS: 87338

== ENCOUNTER 2025-04-12 13:21 | Outpatient (CLI) | payer OTHER, SELFPAY ==
--- OUTSIDE RECORDS SUMMARY | 2025-04-12 14:19 | XMS_ITS | Clinical Summary ---
Author Organization [facility] Address [address] [place] [address] Care Team Providers Care Human Resources Specialist Name Role Phone Kristen Campos Primary Care Provider + Allergies Active Allergy Reactions Criticality Noted Date Comments Amoxicillin Headache Low 11/23/2024 Medications omeprazole (PriLOSEC) 20 mg capsule TAKE 1 CAPSULE BY MOUTH TWICE DAILY FOR 14 DAYS 5 Active acidophilus-pecti n, citrus 100 million cell-10 mg capsule Take by mouth Activ e amoxicillin (AMOXIL) 875 mg tabletIndications :Chronic pansinusitis Take 1 tablet (875 mg total) by mouth 2 (two) times a day for 10 days 20 tablet 5 04/16/20 25 Active predniSONE (DELTASONE) 10 mg tabletIndications :Chronic pansinusitis Take 2 tablets (20 mg) by mouth 2 (two) times a day for 7 days, THEN 1 tablet (10 mg) 2 (two) times a day for 3 days, THEN 1 tablet (10 mg) daily for 3 days. 37 tablet 5 04/19/20 25 Active fluticasone propionate (FLONASE) 50 mcg/actuation nasal sprayIndications: Allergic Rhinitis Administer 2 sprays into each nostril daily 18.2 mL 3 5 05/06/19 26 Active Active Problems Problem Noted Date Diagnosed Date Chronic pansinusitis 04/06/2025 Hypertrophy of both inferior nasal turbinates Non-seasonal allergic rhinitis due to pollen 03/2025 Encounters Date Type Department Care Team Description 04/06/2025 11:00 AM CUSTOMER LEADER Office Visit [facility] [address] [place] [address] Willy Browne II, MD Chronic pansinusitis (Primary Dx); Hypertrophy of both inferior nasal turbinates; Non-seasonal allergic rhinitis due to pollen from Last 3 Months Medical History Medical History Date Comments Allergies Anxiety Sinusitis Social History Tobacco Use Types Packs/Day Years Used Date Smoking Tobacco: Never Tobacco Cessation:Counseling Given: Not Answered Personal Safety Answer Date Recorded Have you ever been in or are you currently in a harmful physical or emotional relationship or is someone making you feel afraid or unsafe? Denies 11/23/2024 Comments No Sex and Gender Information Value Date Recorded Sex Assigned at Not on file Legal Sex Female 6:14 PM CUSTOMER LEADER Gender Identity Not on file Sexual Orientation Not on file Last Filed Vital Signs Vital Sign Reading Time Taken Comments Blood Pressure 108/58 11/23/2024 10:55 AM CDT Pulse 60 11/23/2024 10:55 AM CDT Temperature 36.6 C (97.9 F) 11/23/2024 9:43 AM CDT Respiratory Rate 18 04/06/2025 11:17 AM CUSTOMER LEADER Oxygen Saturation 100% 11/23/2024 10:55 AM CDT Inhaled Oxygen Concentration - - Weight 72.6 kg (160 lb) 04/06/2025 11:17 AM CUSTOMER LEADER Height 165.1 cm (5' 5) 04/06/2025 11:17 AM CUSTOMER LEADER Body Mass Index 26.63 04/06/2025 11:17 AM CUSTOMER LEADER Plan of Treatment Health Maintenance Due Date Last Done Comments Cervical Cancer Screening 1994 Depression Screening 1994 Hepatitis C Screening 1994 Regular Well Visit/Exam 18-64 2012 HPV Vaccines (1 - 3-dose SCDM series) 2021 Covid-19 Vaccine (3 - season) 2024 02/14/2021, 11/15/2020 DTaP/Tdap/Td Vaccine (8 - Td or Tdap) 10/02/2034 10/02/2024, 11/28/2008, 12/11/1999, Additional history exists Hepatitis B Screening Completed 1994 , 1994, 1994 Varicella Vaccines Completed 03/03/2007, 01/04/1998 Influenza Vaccine Completed 02/15/2025, , 02/08/2019 Pneumococcal vaccine <65 Aged Out No longer eligible based on patient's age to complete this topic Insurance [facility] Care Teams Human Resources Specialist Relationship Specialty Start Date End Date Kristen Campos PA [address] [place] [phone] PCP - General Physician Blacksmith Assistant 02/23/25
--- OUTSIDE RECORDS SUMMARY | 2025-04-12 14:19 | XMS_ITS | Clinical Summary ---
Author Organization [facility] Address [address] [place] [address] Care Team Providers Care Pre Press Manager Name Role Phone Unavailable Primary Care Provider Unavailabl e Source Comments [facility],non-owned Affiliates and Associated Physician Practices is amultiple site organization consisting of ambulatory clinics and hospital sitesin [place], [place], [place] and [place]. This disclosure is being madepursuant to the Care Everywhere program and may not contain all information available regarding this patient. Last updated 18.[facility] Social History Tobacco Use Types Packs/Day Years Used Date Smoking Tobacco: Never Assessed Comments Unknown Sex and Gender Information Value Date Recorded Sex Assigned at Not on file Legal Sex Female 5:45 AM DAIRY EQUIPMENT REPAIRER Gender Identity Not on file Sexual Orientation Not on file Plan of Treatment Health Maintenance Due Date Last Done Comments HIV SCREENING 2009 HEPATITIS C SCREENING 06/02/2012 DTAP/TDAP/TD VACCINES (1 - Tdap) 2013 HEPATITIS B VACCINE (1 of 3 - 19+ 3-dose series) 2013 PAP SMEAR 2015 HPV VACCINE (1 - 3-dose SCDM series) 2021 DEPRESSION SCREENING 04/26/2024 COVID-19 VACCINE (1 - 2024-2 6 season) 2024 INFLUENZA VACCINE (#1) 2024 ZOSTER [...] ID:Not on file (Home) Address: [address] [place] [address] Payer ID:Not on file Group ID:Not on file Type:Self Pay Address: [place], [place]
--- OUTSIDE RECORDS SUMMARY | 2025-04-12 14:19 | XMS_ITS | Clinical Summary ---
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
== END 2025-04-12 13:22 | disposition home or self-care (01) ==
PROVIDERS: PCP Physician Assistant; Visit Provider Nurse Practitioner
DX: A04.8 Other specified bacterial intestinal infections (principal)
CPT/HCPCS: 87338